=== PATIENT | female | born 1990 | race African-American/Black ===

== ENCOUNTER 2019-04-06 10:50 | Emergency (ER) | payer OTHER, SELFPAY ==
[2019-04-06 10:58] VITALS: BP 119/79; PULSE 92; RESP 20; TEMP 36.7; O2SAT 99
--- NOTE | 2019-04-06 11:13 | ED.URI ---
HPI - URI/Sore Throat General Chief Complaint: Upper Respiratory Infection Stated Complaint: cough/chest pain/rib pain/fan Source: patient Mode of arrival: ambulatory Limitations: no limitations History of Present Illness HPI Narrative: Patient is a 20-year-old female who presents complaining of cough, sore throat, congestion and mild body aches x3 days. Patient reports that she has not had influenza vaccination. Patient reports taking over the counter medications with limited relief. Patient unknown if she has fever. She denies nausea, vomiting or diarrhea. MD elicited complaint: cough, sore throat, rhinorrhea and nasal congestion Related Data Home Medications Medication Instructions Recorded Confirmed [id number] ea PO 04/06/19 [Theraflu Night Severe Cold-Cgh] ibuprofen-phenylephrine [Sudafed 1 tablet PO Q4-6H PRN 04/06/19 04/06/19 PE Head Congestn-Pain] Allergies Allergy/AdvReac Type Severity Reaction Status Date / Time Penicillins Allergy Unknown HIVES Verified 04/06/19 11:05 Review of Systems Review of Systems: Narrative: CONSTITUTIONAL: Denies fever, chills, or sweats. EYES: Denies visual changes, redness, or discharge. ENT: Reports rhinorrhea, congestion, sore throat, denies otalgia. CARDIOVASCULAR: Denies chest pain, palpitations, or edema. RESPIRATORY: Reports cough, denies dyspnea. GASTROINTESTINAL: Denies abdominal pain, nausea, vomiting, or diarrhea. GENITOURINARY: Denies dysuria or hematuria. SKIN: Denies rash or itching. MUSCULOSKELETAL: Denies back pain, joint pain, or myalgia. NEUROLOGIC: Denies headache, numbness, dizziness, or weakness. PSYCHIATRIC: Denies anxiety or depression. [facility] Past Medical History Medical History (Updated 04/06/19 @ 11:20 by SERGIO De Leon) No significant past medical history Surgical History Surgical History (Updated 04/06/19 @ 11:16 by SERGIO De Leon) No pertinent past surgical history Social History Social History (Updated 04/06/19 @ 11:16 by SERGIO De Leon) Smoking status: Never smoker Alcohol intake: current Alcohol use details: socially Substance use: never Occupation/Education: occupation Gender identity (if verbalized by the patient): Female Exam Narrative: Exam Narrative: GENERAL: Well-appearing, well-nourished, and in no acute distress. HEAD: Normocephalic, atraumatic. EYES: EOMI. No redness or drainage. Conjunctiva are normal. ENT: Mucous membranes pink and moist. Nares clear. Positive clear rhinorrhea. TMs normal bilaterally. Throat mild erythema and edema. Uvula midline. NECK: AROM. Supple. No lymphadenopathy. CHEST: No respiratory distress. Clear to auscultation. HEART: Regular rate and rhythm. No murmur appreciated. Normal peripheral pulses. EXTREMITIES: Normal range of motion. No edema. SKIN: Warm, dry, no rash. NEURO: No focal deficits. Alert and oriented x3. Gait steady. PSYCH: Normal affect. No signs of depression or anxiety. Course Vital Signs Vital signs: Vital Signs Temperature 36.7 C 04/06/19 10:58 Pulse Rate 92 04/06/19 10:58 Respiratory Rate 20 04/06/19 10:58 Blood Pressure 119/79 04/06/19 10:58 Pulse Oximetry 99 04/06/19 10:58 Temperature 36.7 C 04/06/19 10:58 Pulse Rate 92 04/06/19 10:58 Respiratory Rate 20 04/06/19 10:58 Blood Pressure 119/79 04/06/19 10:58 Pulse Oximetry 99 04/06/19 10:58 Reviewed MDM - URI/Sore Throat MDM Narrative Medical decision making narrative: Patient has positive influenza B. Discussed plan of care with patient. Patient is out of the window for Tamiflu. She will be treated with Tessalon for cough and instructed on patient also instructed on when to return the work. Patient is stable for discharge to home with outpatient follow-up as needed. Differential Diagnosis Differential diagnosis: Likely influenza Lab Data Labs: Influenza A Screen Negative Reference Range: N
== END 2019-04-06 11:28 | disposition home or self-care (01) ==
PROVIDERS: Emergency Provider Nurse Practitioner
DX: J10.1 Influenza due to other identified influenza virus with other respiratory manifestations (principal)
CPT/HCPCS: 87804; 99213; G0463

== ENCOUNTER 2019-04-07 04:35 | Emergency (ER) | payer OTHER, SELFPAY ==
[2019-04-07 04:39] VITALS: BP 125/109; PULSE 76; RESP 16; TEMP 36.7; O2SAT 100
--- NOTE | 2019-04-07 04:53 | ED.URI ---
HPI - URI/Sore Throat General Chief Complaint: Upper Respiratory Infection Stated Complaint: SOB Time Seen by Provider: 04/07/19 04:51 History of Present Illness HPI Narrative: Diagnosed with influenza yesterday. Awoke this morning wheezing and feeling short of breath. Additionally she has a cough, congestion, myalgias, and fatigue. No nausea, vomiting, syncope. Related Data Home Medications Medication Instructions Recorded Confirmed [id number] ea PO 04/06/19 [Theraflu Night Severe Cold-Cgh] ibuprofen-phenylephrine [Sudafed 1 tablet PO Q4-6H PRN 04/06/19 04/06/19 PE Head Congestn-Pain] Allergies Allergy/AdvReac Type Severity Reaction Status Date / Time Penicillins Allergy Unknown HIVES Verified 04/06/19 11:05 Review of Systems Review of Systems: All systems reviewed & are unremarkable except as noted in HPI and below Constitutional: Constitutional: Reports chills, Reports fatigue, Reports fever(s) and Reports weakness Eyes: Eyes: Denies change in vision ENT: Reports sore throat Cardiovascular: Cardiovascular: Reports chest pain Respiratory: Respiratory: Reports cough, Reports dyspnea and Reports wheezing Gastrointestinal: Gastrointestinal: Denies nausea Musculoskeletal: Musculoskeletal: Reports myalgias Neurologic: Denies dizziness and Denies weakness PMFSH Past Medical History Medical History No significant past medical history Surgical History Surgical History No pertinent past surgical history Social History Social History (Updated 04/06/19 @ 11:16 by SERGIO De Leon) Smoking status: Never smoker Alcohol intake: current Substance use: never Gender identity (if verbalized by the patient): Female Exam Const: General: no acute distress, alert and ill appearing acutely Nutritional Appearance: obese Orientation/consciousness: patient oriented x3 HENMT: Mouth: Yes Abnormal oral and palatal mucosa present edematous Eyes: Pupils: Equal, round and reactive pupils present Neck: Neck: no lymphadenopathy Resp: Effort & Inspection: normal respiratory effort Auscultation: wheezes (minimal) Cardio: Rate: regular rate Rhythm: regular rhythm GI: GI Palp: Yes Soft to palpation and No Tenderness to palpation present (GI) Skin: General skin exam: normal color Rashes: no rashes Neuro: General: patient oriented x3 and moves all extremities Speech: normal speech Extrem: General: normal to inspection Course Vital Signs Vital signs: Vital Signs Temperature 36.7 C 04/07/19 04:39 Pulse Rate 76 04/07/19 04:39 Respiratory Rate 16 04/07/19 04:39 Blood Pressure 125/109 H 04/07/19 04:39 Pulse Oximetry 100 04/07/19 04:39 Temperature 36.7 C 04/07/19 04:39 Pulse Rate 73 04/07/19 05:50 Respiratory Rate 18 04/07/19 05:50 Blood Pressure 125/109 H 04/07/19 04:39 Pulse Oximetry 97 04/07/19 05:14 Discharge Plan Discharge Clinical Impression: Influenza Patient Disposition: Home, Self-Care Condition: Stable Instructions: Influenza (ED) Prescriptions: New albuterol sulfate 90 mcg/actuation aerosol powdr breath activated 2 inhalation INHALATION Q4H PRN (Reason: shortness of breath or wheezing) Qty: 1 RF: 0 No Action Theraflu Night Severe Cold-Cgh 25-10-650 mg Powder In Packet PO RF: 0 Sudafed PE Head Congestn-Pain 200-10 mg Tablet 1 tablet PO Q4-6H PRN (Reason: Congestion) RF: 0 benzonatate 100 mg capsule 100 mg PO TID PRN (Reason: cough) Qty: 14 RF: 0 ibuprofen 800 mg tablet 800 mg PO Q6H PRN (Reason: pain) Qty: 20 RF: 0 Follow-up/Referrals: UNKNOWN,DOCTOR [Primary Care Provider] -
[2019-04-07 05:14] VITALS: O2SAT 97
[2019-04-07] MEDS: ALBUTEROL SULFATE NEB 2.5 MG/0.5 ML INH 5 MG INHALATION (05:45)
[2019-04-07 05:50] VITALS: PULSE 73; RESP 18
[2019-04-07 05:57] VITALS: PULSE 78; RESP 18
[2019-04-07 06:29] VITALS: BP 134/94; PULSE 72; RESP 14; TEMP 36.9; O2SAT 98
== END 2019-04-07 06:31 | disposition home or self-care (01) ==
PROVIDERS: Emergency Provider Emergency Medicine
DX: J10.1 Influenza due to other identified influenza virus with other respiratory manifestations (principal)
CPT/HCPCS: 94640; 99283

== ENCOUNTER 2019-05-15 17:05 | Emergency (ER) | payer OTHER, SELFPAY ==
[2019-05-15 17:15] VITALS: BP 120/72; PULSE 80; RESP 16; TEMP 36.6; O2SAT 100
--- NOTE | 2019-05-15 17:31 | ED.URI ---
HPI - URI/Sore Throat General Chief Complaint: Upper Respiratory Infection Stated Complaint: OTHER History of Present Illness HPI Narrative: This is a 28-year-old comes in complaining of having the flu approximately 5 to 6 weeks ago patient states she was seen in the emergency room not long after then she was given an inhaler with some steroids. Patient comes in today because she is continued to cough since then patient denies any fever nausea vomiting states her symptoms started to reside states that the cough comes and goes Related Data Allergies Allergy/AdvReac Type Severity Reaction Status Date / Time Penicillins Allergy Unknown HIVES Verified 04/06/19 11:05 Review of Systems Review of Systems: Narrative: CONSTITUTIONAL: Denies fever, chills, or sweats. EYES: Denies visual changes, redness, or discharge. ENT: Denies rhinorrhea, congestion, sore throat, or otalgia. CARDIOVASCULAR:Denies chest pain, palpitations, or edema. RESPIRATORY: Reports cough or dyspnea. GASTROINTESTINAL: Denies abdominal pain, nausea, vomiting, or diarrhea. GENITOURINARY: Denies dysuria or hematuria. SKIN:[Denies rash or itching. MUSCULOSKELETAL:Denies back pain, joint pain, or myalgia. NEUROLOGIC: Denies headache, numbness, or weakness. PSYCHIATRIC:Denies anxiety or depression PMF Social History Social History (Updated 04/06/19 @ 11:16 by SERGIO De Leon) Smoking status: Never smoker Alcohol intake: current Substance use: never Gender identity (if verbalized by the patient): Female Comments At time as signature, I have reviewed and agree with nursing past medical, social, surgical and family history. Please see nursing chart for further information. There is no relevant family history pertinent to the presenting complaint. Exam Narrative: Exam Narrative: GENERAL:Well-appearing, well-nourished, and in no acute distress. HEAD:Normocephalic, atraumatic. EYES: PERRLA and EOMI. ENT: Nares clear, no rhinorrhea or epistaxis. Mucous membranes moist. TM bulging postnasal drip NECK: Supple. CHEST: Clear to auscultation. No respiratory distress. HEART: Regular rate and rhythm. No murmur heard. Normal peripheral pulses. ABDOMEN: Soft, nontender, nondistended, normal active bowel sounds. EXTREMITIES: Normal range of motion. No edema. SKIN: Warm, dry, no rash. NEURO: No focal deficits. Alert and oriented x3. Course Vital Signs Vital signs: Vital Signs Temperature 97.9 F 05/15/19 17:15 Pulse Rate 80 05/15/19 17:15 Respiratory Rate 16 05/15/19 17:15 Blood Pressure 120/72 05/15/19 17:15 Pulse Oximetry 100 05/15/19 17:15 Temperature 97.9 F 05/15/19 17:15 Pulse Rate 80 05/15/19 17:15 Respiratory Rate 16 05/15/19 17:15 Blood Pressure 120/72 05/15/19 17:15 Pulse Oximetry 100 05/15/19 17:15 Discharge Plan Discharge Clinical Impression: Bronchitis Upper respiratory infection Qualifiers: URI type: unspecified viral URI Qualified Code(s): J06.9 - Acute upper respiratory infection, unspecified Patient Disposition: Home, Self-Care Condition: Stable Instructions: Antibiotic Form, Upper Respiratory Infection (ED), Acute Bronchitis (ED) Additional Instructions: Viral illness may last between 7-12days; antibiotic is NOT recommended at this time. Recommend antihistamine such as Benadryl at night time and Claritin/Zyrtec/Nina during the day Also, recommend symptomatic treatment includes: rest, fluids, and increase humidity of the air at home. Recommend Acetaminophen or nonsteroidal anti-inflammatory agents (NSAIDs) as directed in the bottle to reduce fever and/pain/headache. Avoid smoking/second-hand smoke. Limit visits to areas with large crowds. Please schedule a follow-up visit with your personal physician for further evaluation and treatment within 3-5days. Including recheck and discussion of your blood pressure. If your symptoms persist, change or worsen significantly before you can
== END 2019-05-15 17:47 | disposition home or self-care (01) ==
PROVIDERS: Emergency Provider Nurse Practitioner Family
DX: J06.9 Acute upper respiratory infection, unspecified (principal)
CPT/HCPCS: 99213; G0463

== ENCOUNTER 2019-11-03 10:47 | Outpatient (CLI) | payer OTHER, SELFPAY ==
--- NOTE | ~2019-11-03 | MR_ITS ---
EXAMINATION: MR pelvis wo/w con INDICATION: Leiomyoma the uterus TECHNIQUE: Coronal SSFSE ARC, Coronal, Axial, and Sagittal T2 FRFSE, Coronal 2D FIESTA FatSat, Axial SSFSE BH ARC, Axial 3D DualEcho BH, Axial STIR, Axial DWI b=500, pre and dynamic postcontrast Axial L CHRISTINE ARC COMPARISON: None available CONTRAST: Multihance, 20 cc FINDINGS: The uterus is markedly enlarged by fibroids and measures approximately 19.9 x 11.6 x 28.3 c m. There are greater than 10 large uterine fibroids and multiple smaller fibroids. The largest measur es 9.6 x 6.3 cm in the uterine fundus. One measuring 3.5 x 2.4 cm in the right uterine body is hemorr hagic in appearance. The fibroids displace to the left and distort the endometrial complex. The trae l appearing left ovary is displaced into the left abdomen. The visualized portions of the kidneys, ad renal glands, pancreas, spleen, liver, and gallbladder are unremarkable. IMPRESSION: 1. Marked enlargement of the uterus by greater than 10 large fibroids and multiple smaller fibroids w ith displacement and distortion of the endometrial complex. Reviewed, dictated and finalized at location A. IMPRESSION: 1. Marked enlargement of the uterus by greater than 10 large fibroids and multi ple smaller fibroids with displacement and distortion of the endometrial comple x.
[2019-11-03 11:15] LABS: Estimated Glomerular Filt Rate > 60
== END 2019-11-03 10:48 | disposition home or self-care (01) ==
PROVIDERS: PCP Obstetrics & Gynecology; Visit Provider Obstetrics & Gynecology
DX: D25.9 Leiomyoma of uterus, unspecified (principal)
CPT/HCPCS: 72197; A9577

== ENCOUNTER 2020-01-06 09:17 | Emergency (ER) | payer OTHER, SELFPAY ==
[2020-01-06 09:24] VITALS: BP 130/93; PULSE 93; RESP 16; TEMP 36.9; O2SAT 100
--- NOTE | 2020-01-06 09:27 | ED.URI ---
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 Patient notes a shorter 1 to 2-day history of scratchy sore throat followed by frontal sinus headache and nasal congestion. No fever measured, cough, earache, loss of taste/smell, CP, sneezing/wheezing, travel history, vomiting/diarrhea, S OB, rash. Symptoms are mild, worse upon waking this morning, unimproved with a dose of OTC preparations like Claritin. Related Data Allergies Allergy/AdvReac Type Severity Reaction Status Date / Time Penicillins Allergy Unknown HIVES Verified 01/06/20 09:28 Review of Systems Review of Systems: Narrative: General/Constitutional: No weight loss,fever Eyes: N0: Redness,discharge Ears/Nose/Throat: No: Epistaxis,ear discharge Respiratory: Denies: Hemoptysis Gastrointestinal: No Vomiting, Bleeding-rectal Skin: No Lumps, eruption Neurologic: No Focal Weakness,Sz Hematologic: Denies: Petechiae/Purpura Psychiatric: No: Suicida ideationl All Other Systems: Reviewed and Negative [facility] Past Medical History Medical History (Updated 01/06/20 @ 09:28 by Juno Milner MD) Acid reflux Jumper's knee No significant past medical history Surgical History Surgical History No pertinent past surgical history Family History Family History Other Breast cancer Other Diabetes mellitus Grandparent Hypertension Mother Asthma Father Asthma Social History Social History Smoking status: Never smoker Alcohol intake: current Substance use: never Gender identity (if verbalized by the patient): Female Comments At time of signature, agree with nursing past medical, surgical, social and family history. There is no relevant family history pertinent to the presenting complaint Exam Narrative: Exam Narrative: General Appearance: Well appearing, Conjunctiva clear Ears: Auditory canal normal, TM normal Nose: Rhinorrhea, Mucousal erythema Mouth/Throat: MM moist, Uvula midline, Pharyngeal erythema Supple Respiratory: No respiratory distress, not tachypneic, patent Musculoskeletal: Non tender, Normal strength Skin: Warm, Dry Neurological: A&O x3, Normal affect Course Vital Signs Vital signs: Vital Signs Temperature 98.5 F 01/06/20 09:24 Pulse Rate 93 01/06/20 09:24 Respiratory Rate 16 01/06/20 09:24 Blood Pressure 130/93 H 01/06/20 09:24 Pulse Oximetry 100 01/06/20 09:24 Temperature 98.5 F 01/06/20 09:24 Pulse Rate 93 01/06/20 09:24 Respiratory Rate 16 01/06/20 09:24 Blood Pressure 130/93 H 01/06/20 09:24 Pulse Oximetry 100 01/06/20 09:24 Discharge Plan Discharge Clinical Impression: Acute rhinosinusitis Patient Disposition: Home, Self-Care Condition: Stable Instructions: Antibiotic Form, Rhinosinusitis (ED) Prescriptions: New azithromycin 250 mg tablet See Rx Instructions .ROUTE .COMPLEX Qty: 6 RF: 0 azelastine 137 mcg (0.1 %) aerosol,spray 137 mcg NASAL Q12H Qty: 30 RF: 0 Other Ambulatory Orders: SARS-CoV-2 RNA, Qual RT-PCR (Routine) Location: Determined by Patient Ordered By: Juno Milner Follow-up/Referrals: Reanna,Nuno Tamayo MD [Primary Care Provider] - Stand Alone Forms: Work/School Release IP
== END 2020-01-06 09:49 | disposition home or self-care (01) ==
PROVIDERS: Emergency Provider Emergency Medicine; PCP Family Medicine Sports Medicine
DX: J00 Acute nasopharyngitis [common cold] (principal); J01.90 Acute sinusitis, unspecified; Z20.828 Contact with and (suspected) exposure to other viral communicable diseases; K21.9 Gastro-esophageal reflux disease without esophagitis
CPT/HCPCS: 99213; G0463

== ENCOUNTER 2020-06-15 17:24 | Emergency (ER) | payer OTHER, SELFPAY ==
[2020-06-15 17:30] VITALS: BP 127/87; PULSE 81; RESP 16; TEMP 36.7; O2SAT 100
--- NOTE | 2020-06-15 18:12 | ED.DIZZY ---
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 Patient states she has a shorter 1 day history of true vertigo with spinning sensation that began this afternoon and lasted for less than a half a minute. Symptoms are mild, self-limited, cause her to lean towards her coworker while she was standing & heating foods in break area. No fever, URI?sinusitis, tinnitus, lateralizing weakness, speech/visual changes. She mentions a mild associated frontal/parietal headache that preceded this for couple days that did not worsen and is now absent. She has been double vaccinated this year, no CP, loss of taste/smell, S OB. No concerns [LMP was this last weekend], she has history fibroids. She reports she had a recent March stable laboratory work-up for epigastric discomfort felt to be from GERD [and is pending CT scan abdomen the next week]. Advised to go to higher-level care facility to higher level testing if not improved tomorrow, because for early diagnosis of serious problems [endocrine (diabetes, thyroid), anemia, neuro, metabolic causes, etc.], clear specific symptoms may be similar or do not develop later Related Data Home Medications Medication Instructions Recorded Confirmed pantoprazole PO 06/15/20 Allergies Allergy/AdvReac Type Severity Reaction Status Date / Time Penicillins Allergy Unknown HIVES Verified 01/06/20 09:28 Review of Systems Review of Systems: Narrative: General/Constitutional: No weight loss,fever Eyes: N0: Redness,discharge Ears/Nose/Throat: No: Epistaxis,ear discharge Respiratory: Denies: Hemoptysis Gastrointestinal: No Vomiting, Bleeding-rectal Skin: No Lumps, eruption Neurologic: No Focal Weakness,Sz Hematologic: Denies: Petechiae/Purpura Psychiatric: No: Suicida ideationl All Other Systems: Reviewed and Negative [facility] Past Medical History Medical History (Updated 06/16/20 @ 00:01 by Garrett Jackson) Acid reflux Jumper's knee No significant past medical history Surgical History Surgical History No pertinent past surgical history Family History Family History Other Breast cancer Other Diabetes mellitus Grandparent Hypertension Mother Asthma Father Asthma Social History Social History Smoking status: Never smoker Alcohol intake: current Substance use: never Gender identity (if verbalized by the patient): Female Comments At time of signature, agree with nursing past medical, surgical, social and family history. There is no relevant family history pertinent to the presenting complaint Exam Narrative: Exam Narrative: General Appearance: Well nourished/obese, No distress EYE: PERRLA, Conjunctiva clear, EOMI, no nystagmus with position changes Neurological: A&O x3, CN II-X intact Ears: External ear normal, TMs benign Nose: Normal nose Mouth/Throat: Normal appearing, Normal lips Neck: Supple Respiratory: Airway patent, No respiratory distress Cardiovascular: RRR Abdomen: Soft, Non-tender, No massess, No organomegaly (no rebound/ surgical signs), Hyperactive bowel sounds Musculoskeletal: Full ROM and strength with symmetric reflexes 1+ Bi/Tri, AJ/KJ Skin: Warm, Dry Psychiatric: Normal mood, Normal affect Course Vital Signs Vital signs: Vital Signs Temperature 98.1 F 06/15/20 17:30 Pulse Rate 81 06/15/20 17:30 Respiratory Rate 16 06/15/20 17:30 Blood Pressure 127/87 06/15/20 17:30 Pulse Oximetry 100 06/15/20 17:30 Temperature 98.1 F 06/15/20 17:30 Pulse Rate 81 06/15/20 17:30 Respi
== END 2020-06-15 18:24 | disposition home or self-care (01) ==
PROVIDERS: Emergency Provider Emergency Medicine; PCP Family Medicine Sports Medicine
DX: R42 Dizziness and giddiness (principal); K21.9 Gastro-esophageal reflux disease without esophagitis; Z20.822 Contact with and (suspected) exposure to COVID-19
CPT/HCPCS: 87426; 99213; C9803; G0463

== ENCOUNTER 2021-03-31 14:27 | Outpatient (CLI) | payer OTHER, SELFPAY ==
[2021-03-31 16:20] LABS: Hematocrit 44.9 % (37.0-47.0); Hemoglobin 14.2 g/dL (12.0-15.0); Mean Corpuscular HGB Conc 31.6 g/dl (32-36); Mean Corpuscular Hemoglobin 26.3 pg (26-34); Mean Corpuscular Volume 83.1 fl (80-100); Mean Platelet Volume 10.2 fl (7.4-10.4); Platelet Count Result 253 k/mm3 (150-375); Red Cell Distribution Width 15.3 % (11.5-14.5); White Blood Count 4.6 K/mm3 (4.5-10.0)
== END 2021-03-31 14:28 | disposition home or self-care (01) ==
PROVIDERS: PCP Family Medicine Sports Medicine; Visit Provider Obstetrics & Gynecology
DX: Z01.818 Encounter for other preprocedural examination (principal); D25.9 Leiomyoma of uterus, unspecified
CPT/HCPCS: 36415; 85027; 86850; 86900; 86901

== ENCOUNTER 2021-04-05 20:11 | Inpatient (IN) | payer OTHER, SELFPAY ==
[2021-03-30 12:46] VITALS: BMI 41.5
--- NOTE | 2021-03-30 12:54 | PC.NURSE ---
Report to the Outpatient Waiting Room, entrance under the green pavilion located off [facility], at time 11:30 on date 04/05/21. OR Time: 1:30. - You will be asked a series of questions to screen for COVID 19 for your protection. - A mask is required within the hospital. - No visitors are allowed at this time. Preoperative COVID Testing Requirements: TO BRING COPY OF CARD No COVID Test needed if: (proof is required; if not received patient will have Rapid Test prior to entry) - Patient has received COVID Vaccine at least 14 days prior to procedure date or - Patient has positive COVID test result within last 90 days of surgery date. COVID Test needed if above criteria is not met Patients may have clear liquids (water, carbonated beverages, clear teas, apple juice) until 3 hours prior to surgery (10:30) with a maximum of 20 ounces. - No food from midnight until time of surgery Take the following medications with a SIP of water the morning of surgery: NONE Medications to discontinue per physician: VITAMINS/SUPPLEMENTS Date to take last dose: 04/01/21 Please no make-up, nail senegalese, hairspray, perfume, deodorant, or body powder the day of surgery. No jewelry (including any body piercings) or valuables the day of surgery, leave them at home. Please take a shower or bath the night before, or the morning of, surgery with an antibacterial soap. Wear comfortable, loose fitting clothing. - Jewelry must be removed prior to entering the operating room. Rings and piercings that are not removed may be cut off. - The hospital will not accept responsibility for valuables. - Please leave all valuables, including medications, at home the day of surgery. If you are going home after surgery, a licensed commercial truck driver must drive you home. - NO public transportation without another adult. - We recommend that an adult stay with you for 24 hours following discharge. - We also recommend that you do not drive, make important decision, drink alcoholic beverages, or take any drugs that were not prescribed by your health care provider for at least 24 hours after your discharge time. Follow any additional instructions given to you from your surgeon. Telephone instructions given to STAN ANDREWS and asked if any additional questions and then verbalized understanding. Patient advised to call surgeon office or pre surgery nurse liaison [phone] if any additional questions.
--- NOTE | 2021-04-04 22:43 | PM.IMHP ---
H&P: HPI History of Present Illness Date/Time: 04/04/21 22:43 Patient is a nulliparous female with a known history of fibroids. She had a history several years ago of heavy periods which did improve with control pills which she did due to side effects. Since then periods have not caused her any problems, not significantly heavy. She started noticing increased diffuse abdominal pressure a year ago. Her uterus measured approximately 34 weeks. She had CTs which showed enlarged fibroid uterus, multiple fibroids with largest measuring approximately 12 cm. She has been informed of options of myomectomy and discussed uterine fibroid embolization and risk to future . She was referred to [facility] for there opinion which they offered myomectomy. She opted to get myomectomy here. She had normal endometrial biopsy. She did have three months of Lupron which did decreased the size of the uterus from 34 0 22 weeks. She has been informed of risk/benefits of myomectomy, to include risk of hysterectomy and possible need for ceserean section with future pregnancies. She continues to desire abdominal myomectomy. Chief Complaint: Abdominal pressure Review of Systems Review of Systems: All systems reviewed & are unremarkable except as noted in HPI and below Cardiovascular: Cardiovascular: Reports no additional cardiovascular complaints, Denies chest pain and Denies dyspnea Respiratory: Respiratory: Reports no additional respiratory complaints and Denies dyspnea Gastrointestinal: Gastrointestinal: Reports abdominal pain, Denies change in bowel habits, Denies diarrhea, Denies nausea and Denies vomiting Genitourinary: Genitourinary: Reports pelvic pain Musculoskeletal: Musculoskeletal: Reports back pain Integumentary/Breasts: Skin/Breast: Reports system reviewed and no additional complaints, except as docu Neurologic: Reports system reviewed and no additional complaints, except as documented [facility] Past Medical History Medical History Acid reflux History of uterine fibroid Jumper's knee Surgical History Surgical History No pertinent past surgical history Family History Family History Other Breast cancer Other Diabetes mellitus Grandparent Hypertension Mother Asthma Father Asthma Social History Social History Smoking status: Former smoker Tobacco type: e-cigarettes/vaping Additional smoking assessment comments: QUIT VAPING FEB 2021 Alcohol intake: current Drinks per week: 5 Alcohol use details: socially Substance use: current Substance use type: marijuana Other substance usage details: GUMMIES Gender identity (if verbalized by the patient): Female Spiritual care concerns: No Meds Home Medications and Allergies Home Medications Medication Instructions Recorded Confirmed Type pantoprazole 40 mg PO DAILY PRN 06/15/20 03/30/21 History elderberry fruit 460 mg-elderberry 1 cap PO DAILY 07/01/20 03/30/21 History flower 115 mg capsule multivitamin 1 tablet PO DAILY 07/01/20 03/30/21 History leuprolide (3 month) 11.25 mg (3 11.25 mg IM [id number] #1 ea 12/16/20 03/30/21 Rx month) intramuscular syringe kit ferrous sulfate [Iron (ferrous 325 mg PO DAILY 03/30/21 03/30/21 History sulfate)] vitamin W26-mrats acid 1 tablet PO DAILY 03/30/21 03/30/21 History Allergies Allergy/AdvReac Type Severity Reaction Status Date / Time Penicillins Allergy Unknown HIVES Verified 03/30/21 12:44 Exam Const: Orientation/consciousness: oriented to person and oriented to place HENMT: Head: normal to inspection Eyes: General: appearance normal, both eyes and all related structures Resp: Effort & Inspection: normal respiratory effort Auscultation: clear to ausculta
[2021-04-05] VITALS (23 sets, daily range): BP systolic 78–128; BP diastolic 46–84; PULSE 81–113; RESP 12–18; TEMP 36.3–36.4; O2SAT 71–100; BMI 42.4
--- NOTE | ~2021-04-05 | CT_ITS ---
EXAMINATION: CT abdomen pelvis wo con DATE: 04/08/2021 09:16 INDICATION: Postop day 3. Hemoglobin. TECHNIQUE: Computed tomography (CT) of the abdomen and pelvis was performed without intravenous contr ast. The dose-length product was 1445.18 mGy-cm. Automated exposure control and iterative reconstruct ion technique were employed. COMPARISON: None. FINDINGS: There is lower lobe airspace disease bilaterally which may represent atelectasis or develop ing pneumonia. Heart size normal. No significant pleural or pericardial effusion. NG tube in the stom ach. There are dilated fluid-filled small bowel loops throughout the abdomen, likely postoperative il eus. There is postoperative changes in the anterior abdominal wall with fat stranding and subcutaneou s gas. Uterus is significantly enlarged and heterogeneous. Endometrium is not well delineated. Small amount of fluid in the pelvis, nonspecific. Small amount of free air in the pelvis, also likely posts urgical. No acute osseous abnormality. The liver, spleen, pancreas, adrenal glands and kidneys are unremarkable. No acute osseous abnormalit y. IMPRESSION: 1. Bilateral lower lobe airspace disease which may represent atelectasis and/or developing pneumonia. 2: Multiple dilated fluid-filled small bowel loops with air-fluid levels, consistent with ileus. 3: Large heterogeneous uterus. Endometrium not well delineated. Postoperative changes are noted in th e lower abdomen and pelvis. Reviewed, dictated and finalized at location A. RONMENTAL SERVICES COORDINATOR IMPRESSION: 1. Bilateral lower lobe airspace disease which may represent atelectasis and/or developing pneumonia. 2: Multiple dilated fluid-filled small bowel loops with air-fluid levels, cons istent with ileus. 3: Large heterogeneous uterus. Endometrium not well delineated. Postoperative c hanges are noted in the lower abdomen and pelvis.
--- NOTE | ~2021-04-05 | XR_ITS ---
XR abdomen NG/feed tube insert INDICATION: Evaluate NG tube position. TECHNIQUE: Limited KUB perform for evaluating NG tube . COMPARISON: 04/07/2021 FINDINGS: NG tube tip in the stomach. There are dilated small bowel loops in the left upper abdomen c onsistent with ileus or obstruction. IMPRESSION: 1: NG tube tip in the stomach. 2: Dilated small bowel, consistent with ileus or obstruction. Reviewed, dictated and finalized at location A. ESSOR OF LEGAL STUDIES
--- NOTE | ~2021-04-05 | XR_ITS ---
XR chest 2V 04/08/2021 09:05 Indication: Fever. Postop. Procedure: 2 view chest Comparison: No prior studies for comparison. Findings: There is right lower lobe atelectasis. Heart size normal. NG tube in the stomach. No focal pneumonia, pleural effusion, edema or pneumothorax. Impression: 1: Right lower lobe atelectasis. Reviewed, dictated and finalized at location A. PAPER PRINTER HELPER Impression: 1: Right lower lobe atelectasis.
--- NOTE | ~2021-04-05 | XR_ITS ---
EXAMINATION: XR abdomen/kub 1V EXAM DATE: 04/07/2021 15:44 INDICATION: Rule out ileus, no flatus since surgery 04/05/21. TECHNIQUE: Frontal projection(s) of the abdomen for interpretation. There is no prior study for yo machado. FINDINGS: Severely distended air-filled small bowel loops and relative paucity of colonic contents. Could be postoperative ileus given the history provided. There is no organomegaly. There are no osseo us abnormalities identified. IMPRESSION: Severely distended small bowel, consider postoperative ileus given history provided. Reviewed, dictated and finalized at location G. UP ARTIST
--- NOTE | 2021-04-05 12:26 | WPDHPUPDATE1 ---
History and Physical Update Update Date/Time: 04/05/21 12:26 History and Physical has been reviewed, including an updated exam of the patient. There are NO changes in the patient's condition. Risks, benefits, and alternatives have been discussed and questions answered. Patient agrees to proceed with procedure.
[2021-04-05] MEDS: KETOROLAC 15 MG/ML VIAL (*BKC) IV PUSH (12:30)
[2021-04-05] MEDS: SCOPOLAMINE 1.5 MG PATCH TRANSDERM (12:30)
[2021-04-05] MEDS: LACTATED RINGERS 1,000 ML 30 ML IV CONT ×4 (12:30→20:12)
--- NOTE | 2021-04-05 12:33 | P.PNAN_ITS ---
Anes - Initial Pre Proc Eval Procedure: Operation Date: 04/05/21 13:30 Proposed Procedures p Abdominal Myomectomy - Pipe Jacome MD Date/Time: 04/05/21 12:33 Surgeon: Pipe Jacome MD Pre Op Diagnosis: uterine fibroids Patient Data Age: 30 Gender: F Height: 1.63 m Weight: 109.77 kg Allergies Allergy/AdvReac Type Severity Reaction Status Date / Time Penicillins Allergy Unknown HIVES Verified 03/30/21 12:44 Home Medications Medication Instructions Recorded Confirmed Type pantoprazole 40 mg PO DAILY PRN 06/15/20 03/30/21 History elderberry fruit 460 mg-elderberry 1 cap PO DAILY 07/01/20 03/30/21 History flower 115 mg capsule multivitamin 1 tablet PO DAILY 07/01/20 03/30/21 History leuprolide (3 month) 11.25 mg (3 11.25 mg IM [id number] #1 ea 12/16/20 03/30/21 Rx month) intramuscular syringe kit ferrous sulfate [Iron (ferrous 325 mg PO DAILY 03/30/21 03/30/21 History sulfate)] vitamin Z36-hedxf acid 1 tablet PO DAILY 03/30/21 03/30/21 History Patient hx anesthesia problems: none Family hx anesthesia problems: none Results Review: All pre-operative results and documents have been reviewed as part of the pre-operative evaluation. [facility] Past Medical History Medical History (Updated 04/05/21 @ 12:33 by Raymond Mckay MD) Acid reflux History of uterine fibroid Jumper's knee Morbid obesity Surgical History Surgical History No pertinent past surgical history Family History Family History Other Breast cancer Other Diabetes mellitus Grandparent Hypertension Mother Asthma Father Asthma Social History Social History Smoking status: Former smoker Tobacco type: e-cigarettes/vaping Additional smoking assessment comments: QUIT VAPING FEB 2021 Alcohol intake: current Drinks per week: 5 Alcohol use details: socially Substance use: current Substance use type: marijuana Other substance usage details: TRIXIEMIBUSTER Living arrangements: alone Gender identity (if verbalized by the patient): Female Spiritual care concerns: No Anes - Eval Final PreProcedure Day of Procedure 04/05/21 12:33 Patient weight: morbidly obese Heart: regular rate and rhythm Lungs: clear to auscultation Airway: Mallampati scale class II Neurological: alert and oriented Last oral intake: >/= 8 hours ASA classification: III Emergent: no Anesthetic plan: proceed Anesthesia type and monitoring: general ETT and standard monitoring Results Review: All pre-operative results and documents have been reviewed as part of the pre-operative evaluation. Informed Consent: The patient's anesthetic plan and its attendant risks and benefits were discussed with the patient/family/POA. Questions were solicited and answers provided to the satisfaction of the patient/family/POA.
[2021-04-05] MEDS: ceFAZolin 2 GM/D5W 50 ML 2 GM/50 ML BAG IVPB (12:40)
[2021-04-05] MEDS: VASOPRESSIN INJ 20 UNITS/ML VIAL XX (13:15)
[2021-04-05] MEDS: TRANEXAMIC ACID 1,000 MG/10 ML AMPUL 1000 MG IV PUSH ×2 (14:06→19:09)
[2021-04-05] MEDS: METHYLERGONOVINE MALEATE 0.2 MG/ML VIAL IM (15:38)
[2021-04-05] MEDS: ceFAZolin SODIUM 1 GM VIAL IV PUSH (16:26)
--- NOTE | 2021-04-05 17:14 | SUR.OPER ---
EBL 1600
[2021-04-05] MEDS: fentaNYL CITRATE INJ (*CRX) 100 MCG/2 ML VIAL 25 MCG IV PUSH ×6 (17:48→19:38)
[2021-04-05 19:00] LABS: Hematocrit 22.5 % (37.0-47.0)
--- NOTE | 2021-04-05 19:23 | SUR.PHASEI ---
1920- Tranexamic acid 1000mg given slow ivp. 100mg every 10 minutes. Bloodwork drawn. family member updated.
--- NOTE | 2021-04-05 19:54 | SUR.PHASEI ---
1944- Dr Jacome made aware of H&H results. No new orders given at this time.
--- NOTE | 2021-04-05 20:31 | PM.OP ---
Procedure Note - Brief Procedure Note - Brief Date of procedure: 04/05/21 Pre-op diagnosis: uterine fibroids Post-op diagnosis: same Procedure performed: Abdominal myomectomy Anesthesia: GETA Surgeon: Pipe Jacome MD Estimated blood loss (mL): 1,700 Drains: No Packing: No Pathology: yes (multiple uterine fibroids ( 20)) Complications: No immediate complications Condition: stable Disposition: floor
[2021-04-05] MEDS: DEXTROSE 5%/0.45% SOD CHL 1,000 ML 125 ML IV CONT (20:57)
[2021-04-05] MEDS: ONDANSETRON INJ 4 MG/2 ML VIAL IV PUSH (20:58)
[2021-04-05] MEDS: FENTANYL 600MCG/NS30MLPCA(*CRX 600 MCG/30 ML PCA.VIAL IV CONT (22:04)
[2021-04-05 22:41] LABS: Basophils Percent Auto 0.1 % (0.2-1.2); Eosinophils Percent Auto 0.1 % (0-4.4); Immature Granulocyte Absolute 0.09 K/mm3 (0.00-0.031); Immature Granulocyte Percent A 0.7 % (0-0.5); Lymphocytes Absolute Auto 0.98 K/mm3 (0.9-3.2); Lymphocytes Percent Auto 7.3 % (18.3-44.2); Mean Corpuscular HGB Conc 31.6 g/dl (32-36); Mean Corpuscular Hemoglobin 27.5 pg (26-34); Mean Corpuscular Volume 87.2 fl (80-100); Mean Platelet Volume 10.9 fl (7.4-10.4); Monocytes Absolute Auto 1.3 K/mm3 (0.1-0.6); Monocytes Percent Auto 9.9 % (2.6-8.5); Neutrophils Percent Auto 81.9 % (45.5-73.1); Platelet Count Result 164 k/mm3 (150-375); Red Blood Count 2.18 M/mm3 (4.2-5.4); Red Cell Distribution Width 14.9 % (11.5-14.5); White Blood Count 13.4 K/mm3 (4.5-10.0)
[2021-04-05] MEDS: SODIUM CHLORIDE 0.9% IV 1,000 ML 125 ML (23:25)
[2021-04-06] VITALS (20 sets, daily range): BP systolic 80–109; BP diastolic 40–63; PULSE 101–123; RESP 12–24; TEMP 36.8–38.2; O2SAT 95–100
--- NOTE | 2021-04-06 00:46 | PC.NURSE ---
2030- Pt admitted to room 289. A&O x3. PL [address].
[2021-04-06] MEDS: SIMETHICONE 80 MG TAB.CHEW PO ×2 (02:40→15:06)
--- NOTE | 2021-04-06 03:37 | PC.NURSE ---
Anastasia becomes very anxious at times, with faster respirations and heart rate, better with guided breathing and encouragement to slow down, has been able to do this for herself last episode refuses to decrease O2 rate at this time, informed today we will be weaning her off of the O2
--- NOTE | 2021-04-06 07:00 | PC.NURSE ---
PT introductions made and plan of care discussed per post op ob/gyn surgery, pain management, daily care activities. PT received such instructions per one to one discussion and demonstration. pt shows no barriers to learning. PT sole recipient of such instructions. PT verbalized understanding of such care.
--- NOTE | 2021-04-06 07:43 | WPDANESPN ---
Anes - Prog Note Post-Op Date/Time: 04/06/21 07:43 Cardiovascular status: normal Respiratory status: normal Airway patency: baseline Mental status: baseline Post-Op hydration status: normal Vital Signs: Last Vital Signs Temp 37.7 C H 04/06/21 05:10 Pulse 123 H 04/06/21 05:10 Resp 22 H 04/06/21 05:10 BP 84/54 L 04/06/21 05:10 Pulse Ox 100 04/06/21 05:10 Pain Score (VAS): 0 I/O: Intake & Output 04/05/21 04/05/21 04/06/21 15:59 23:59 07:59 Intake Total 50 1750 1353 Output Total 105 250 Balance 50 1645 1103 Laboratory Tests 04/05/21 22:23 04/05/21 04/05/21 04/05/21 18:53 22:23 23:48 WBC 13.4 H RBC 2.18 L Hgb 7.0 L D 6.0 L* Hct 22.5 L 19.0 L* MCV 87.2 MCH 27.5 MCHC 31.6 L RDW 14.9 H Plt Count 164 MPV 10.9 H Immature Gran % (Auto) 0.7 H Neut % (Auto) 81.9 H Lymph % (Auto) 7.3 L [place] % (Auto) 9.9 H Eos % (Auto) 0.1 Baso % (Auto) 0.1 L Lymph # (Auto) 0.98 [place] # (Auto) 1.3 H Eos # (Auto) 0.0 Baso # (Auto) 0.0 Abs Immat Gran (auto) 0.09 H Absolute Neuts (auto) 11.0 H Absolute Nucleated RBC 0.0 Nucleated RBC % 0.0 Blood Type A Positive Antibody Screen Negative Crossmatch See Detail Post-procedural complaints: none Patient Feedback: Patient satisfied with anesthetic care.
--- NOTE | 2021-04-06 09:07 | PM.GYNPNOP ---
GENERAL PARTNER - A/P Assessment and plan (1) Status post myomectomy: Code(s): Z98.890 - Other specified postprocedural states Status: Acute Assessment and Plan: She is doing well. discussed her surgery with her. Urine output increasing this am, will give dose of Lasix since had increase IVF last night. Encourage ambulation today. Advance diet. Will start po pain medication (2) Postoperative anemia: Code(s): D64.9 - Anemia, unspecified Status: Acute Assessment and Plan: She is status post 2 units PRBCs. Her post transfusion CBC pending. She has minimal vaginal bleeding. No signs of active bleeding. Postoperative Procedures: Procedures Operation Date: 04/05/21 13:30 Actual Procedure Side Surgeon p Abdominal Myomectomy Not Applicable Pipe Jacome MD Time Spent With Patient Time: Total time spent is greater than 50% in coordination of care (as documented) at patient's floor/unit and/or counseling patient: Time with patient: less than 15 minutes GENERAL PARTNER- PN:Subj Post-Op Subjective Date/time seen: 04/06/21 09:07 She has some upper abdominal pain not relieved with Tylenol. 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 No lower abdominal pain. Minimal vaginal bleeding. She did OK sitting up in chair. Tolerating water and ice chips. No flatus. No leg pain. No chest pain. Denies SOB. Review of Systems Review of Systems: All systems reviewed & are unremarkable except as noted in HPI and below Cardiovascular: Cardiovascular: Reports no additional cardiovascular complaints Respiratory: Respiratory: Reports no additional respiratory complaints Gastrointestinal: Gastrointestinal: Reports belching, Denies nausea and Denies vomiting Genitourinary: Genitourinary: Reports no additional female genitourinary complaints Musculoskeletal: Musculoskeletal: Reports no additional musculoskeletal complaints Exam Const: General: comfortable and no acute distress Orientation/consciousness: oriented to person, oriented to place and oriented to time Resp: Auscultation: clear to auscultation bilaterally Cardio: Rate: regular rate Rhythm: regular rhythm GI: GI Palp: Yes Soft to palpation and No Tenderness to palpation present (GI) Other: bowel sounds present, dressing clean dry and intact uterus palp 14 weeks nontender Neuro: General: oriented to person, oriented to place and oriented to time Extrem: General: no calf tenderness Psych: Mental Status: mental status grossly normal GENERAL PARTNER - PN: Obj Data Vital Signs Vital Signs: Vital Signs - 24 hr 04/05/21 12:23 04/05/21 17:29 04/05/21 17:45 Temperature 97.5 F L 97.4 F L Pulse Rate 88 92 82 Respiratory Rate 16 14 14 Blood Pressure 128/84 95/61 L 99/61 L Pulse Oximetry 100 100 100 04/05/21 18:00 04/05/21 18:15 04/05/21 18:30 Temperature Pulse Rate 85 81 100 Respiratory Rate 14 16 12 Blood Pressure 105/57 L 99/58 L 95/57 L Pulse Oximetry 100 100 100 04/05/21 18:45 04/05/21 19:00 04/05/21 19:15 Temperature Pulse Rate 90 90 83 Respiratory Rate 12 12 12 Blood Pressure 95/57 L 89/60 L 94/55 L Pulse Oximetry 100 100 100 04/05/21 19:30 04/05/21 19:45 04/05/21 20:02 Temperature Pulse Rate 97 96 102 H Respiratory Rate 16 15 13 Blood Pressure 92/54 L 98/60 L 102/66 Pulse Oximetry 100 100 100 04/05/21 20:13 04/05/21 20:30 04/05/21 22:30 Temperature 97.4 F L Pulse Rate 95 97 94 Respiratory Rate 17 16 18 Blood Pressure 96/63 L 78/47 L 91/53 L Pulse Oximetry 100 100 100 04/05/21 22:45 04/05/21 23:00 04/05/21 23:15 Temperature Pulse Rate 106 H 101 H 94 Respiratory Rate Blood Pressure 96/65 L 103/66 105/62 Pulse Oximetry 97 100 100 04/05/21 23:30 04/05/21 23:35 04/06/21 00:50 Temperature 98.3 F Pulse Rate 113 H 105 H 110 H Respiratory Rate 24 H Blood Pressure 84/46 L 97/58 L 96/40 L Pulse Oximetry 97 97 100 04/06/21 01:04 04/06/21 01:13 04/06/21 01:38 Temperature 98.2 F 98.2 F 98.6 F Pulse Rate 115 H
[2021-04-06] MEDS: FUROSEMIDE INJ 40 MG/4 ML VIAL IV PUSH (09:32)
[2021-04-06] MEDS: LACTATED RINGERS 1,000 ML 125 ML IV CONT (09:44)
[2021-04-06 11:21] LABS: Hematocrit 25.3 % (37.0-47.0); Hemoglobin 8.6 g/dL (12.0-15.0)
[2021-04-06 11:33] LABS: Anion Gap 1 mmol/L (8-16); Blood Urea Nitrogen 17 mg/dL (7-17); Calcium 7.2 mg/dL (8.4-10.2); Carbon Dioxide 24 mmol/L (22-30); Chloride 103 mmol/L (98-107); Estimated CRCL calculation 81 ml/min; Estimated Glomerular Filt Rate > 60; Glucose 142 mg/dL (65-110); Potassium 4.3 mmol/L (3.4-5.0); Sodium 128 mmol/L (137-145)
--- NOTE | 2021-04-06 11:53 | W.PM.PROC2 ---
Procedure Note - Detailed Date of Procedure 04/05/21 Pre-op Diagnosis uterine fibroids Post-op Diagnosis same Procedure Performed Abdominal myomectomy. Surgeon Pipe Jacome MD Real Estate Rental Agent Dr. Desi Marrero Anesthesia general Indications Patient with history of fibroids that have increased over the past several years causing abdominal swelling and discomfort throughout and a history of heavy periods. Uterus has measured 34 weeks. She is nulliparous and desires the option to have children in the future. Findings Enlarged uterus which consisted mostly of large intramural and subserosal fibroids she also had a large 12 cm pedunculated fibroid at the left fundus. The fallopian tubes and ovaries were normal bilaterally. Description of Procedure After informed consent was obtained patient was taken to the operating room and adequate general endotracheal anesthesia was administered. She was placed in supine position and prepped and draped in sterile fashion. Waddell catheter was placed at this time. A Pfannenstiel skin incision was made with the scalpel the subcutaneous tissue was dissected down with cautery to the fascia. The fascia was incised in the midline and extended bilaterally with Ch scissors. The fascia was from rectus muscle superiorly and inferiorly using cautery and sharp scissors. The peritoneal was identified and was grabbed with a clamp and entered sharply. The pelvic organs were visualized. The uterus was visualized and noted to have multiple fibroids the full uterus was palpated and the large pedunculated fibroid was palpated and was noted not to be attached to any surrounding tissue. The skin incision was extended to allow better visualization. The uterus could not be completely exteriorized due to the size and the pedunculated fibroid therefore attention was turned to the anterior fibroid and using dilute Pitressin Pitressin was injected over the anterior fibroid. This was the largest 1 anteriorly. An incision was made into the serosa with the cautery to the level of where the fibroid was seen. The fibroid was grasped with towel clamps the fibroid was dissected from the surrounding tissue bluntly and using cautery and Kasey clamps. The vessel that was noted to be supplying the fibroid was clamped. The fibroids were then removed. Several other larger fibroids that were palpated through this anterior incision were dissected in similar fashion. Once the fibroids that could be palpated from this incision were removed then the incision was closed in layers of [id number] of 0 Vicryl and hemostasis was noted. This did debulk the uterus enough to palpate the large pedunculated fibroid this fibroid could not be delivered through the incision but the pedicle was palpated and was clamped with Ba clamps and the pedunculated fibroid was cauterized from the pedicle. At this time the uterus was able to be exteriorized. The pedicle was suture ligated with 0 Vicryl. And the serosa underlying myometrial layer was approximated with 0 Vicryl. Multiple other fibroids were removed in similar fashion. there were 3 anterior incisions that had to the made to remove all of the fibroids that could be palpated. The cavity was near to being entered when removing the fibroids from the middle anterior incision. All of the subserosal fibroids were removed and the muscle and fascia approximated. There were a total of 20 fibroids of different sizes removed. The largest pedunculated was approximately 12 and the larger intramural fibroids were appproximately 10 and 9 cm. The pedunculated fibroid that was removed was retrieved. All layers were approximated with several layers of 0 vicryl and the serosa closed. Hemostasis was noted. Trenexamic acid was ordered during the procedure and she was given a second dose of Ancef. The pelvis was irrigated. The incisions were inspected and noted to be hemostatic. There was good tone to the uterus. There was eng
[2021-04-06] MEDS: FENTANYL 600MCG/NS30MLPCA(*CRX 600 MCG/30 ML PCA.VIAL IV CONT (12:29)
[2021-04-06] MEDS: HYDROcodone/acetaminophen (*CRX) 5-325 MG TABLET 1 TAB PO ×3 (15:06→22:40)
[2021-04-06] MEDS: IBUPROFEN 600 MG TABLET PO ×2 (15:06→22:39)
[2021-04-07] MEDS: ONDANSETRON INJ 4 MG/2 ML VIAL IV PUSH ×2 (05:26→22:21)
[2021-04-07 08:30] VITALS: BP 97/51; PULSE 108; RESP 16; TEMP 37.2; O2SAT 100
[2021-04-07] MEDS: SIMETHICONE 80 MG TAB.CHEW PO (08:46)
[2021-04-07] MEDS: BISACODYL 10 MG SUPPOSITORY RECTAL (10:50)
[2021-04-07] MEDS: IBUPROFEN 600 MG TABLET PO (10:50)
--- NOTE | 2021-04-07 11:01 | PM.GYNPNOP ---
RESOURCE RECOVERY ENGINEER - A/P Assessment and plan (1) Status post myomectomy: Code(s): Z98.890 - Other specified postprocedural states Status: Acute Assessment and Plan: POD 2 s/p myomectomy and post op anemia. No hypovolemic symptoms. Good urination. Slow return of bowel function. Bowel sounds present. Suppository ordered. Encourage ambulation. Will have do mostly liquids. Isolated elevated temp >100.4 continue to monitor, encourage IS. Postoperative Procedures: Procedures Operation Date: 04/05/21 13:30 Actual Procedure Side Surgeon p Abdominal Myomectomy Not Applicable Pipe Jacome MD Time Spent With Patient Time: Total time spent is greater than 50% in coordination of care (as documented) at patient's floor/unit and/or counseling patient: Time with patient: less than 15 minutes RESOURCE RECOVERY ENGINEER- PN:Subj Post-Op Subjective Date/time seen: 04/07/21 11:01 She has the upper abdominal gas pain. She is belching. No flatus. No nausea after eating. Tolerating regular diet. She has ambulated some, no problems. No lightheadedness or dizziness. Has been using incentive spirometer. No leg pain or chest pain or SOB. Minimal vaginal bleeding. Exam Const: General: no acute distress Eyes: General: appearance normal, both eyes and all related structures Resp: Effort & Inspection: normal respiratory effort Auscultation: clear to auscultation bilaterally Cardio: Rate: regular rate and tachycardic GI: Other: incision clean dry intact hypoactive bowel sounds uterus palpable appropriate tenderness. no rebound no guarding Skin: General skin exam: normal color Extrem: General: normal to inspection Left upper extremity: no edema Other: nontender RESOURCE RECOVERY ENGINEER - PN: Obj Data Vital Signs Vital Signs: Vital Signs - 24 hr 04/06/21 11:14 04/06/21 11:49 04/06/21 15:00 Temperature 98.6 F 98.9 F Pulse Rate 112 H 110 H Respiratory Rate 16 16 18 Blood Pressure 80/46 L 90/51 L Pulse Oximetry 96 97 97 04/06/21 20:30 04/06/21 22:30 04/07/21 08:30 Temperature 100.8 F H 99.4 F 99 F Pulse Rate 101 H 108 H Respiratory Rate 18 16 Blood Pressure 103/63 97/51 L Pulse Oximetry 100 100 Intake/Output Intake/Output: Intake & Output 04/04/21 04/05/21 04/06/21 04/07/21 23:59 23:59 23:59 23:59 Intake Total 1800 3153 600 Output Total 105 3900 1375 Balance 0889 -757 -303 Meds/Results Medications: Active Medications Generic Name Dose Route Start Last Admin Trade Name Freq PRN Reason Stop Dose Admin Hydrocodone Bitart/Acetaminophen 1 tab 04/05/21 21:23 04/06/21 22:40 Hydrocodone/Acetaminophen (*Crx) 5-325 Mg Tablet PO 1 tab Q3H PRN Administration Pain Rated 4-6 Fentanyl Citrate 600 mcg in 30 mls @ 0 mls/hr 04/05/21 20:39 04/06/21 12:29 Fentanyl 600 Mcg/Ns 30 Ml 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 [employer] Processing IV CONT 0 mls/hr PRN PRN Administration INSPECTOR AND UNLOADER Management Protocol Ibuprofen 600 mg 04/05/21 21:23 04/07/21 10:50 Ibuprofen 600 Mg Tablet PO 600 mg Q6H PRN Administration Cramping Ondansetron HCl 4 mg 04/05/21 20:11 04/07/21 05:26 Ondansetron Inj 4 Mg/2 Ml Vial IV PUSH 4 mg Q6H PRN Administration Nausea Simethicone 80 mg 04/05/21 20:11 04/07/21 08:46 Simethicone 80 Mg Tab.Chew PO 80 mg Q2H PRN Administration Gas Labs CBC & Chem 7: 04/06/21 11:14 04/06/21 11:14 Labs: Laboratory Results - last 24 hr 04/06/21 04/06/21 11:14 11:14 Hgb 8.6 L Hct 25.3 L Sodium 128 L Potassium 4.3 Chloride 103 Carbon Dioxide 24 Anion Gap 1 L BUN 17 Creatinine 1.10 H Estim Creat Clear Calc 81 Estimated GFR > 60 Glucose 142 H Calcium 7.2 L
[2021-04-07] MEDS: HYDROcodone/acetaminophen (*CRX) 5-325 MG TABLET 1 TAB PO (14:49)
[2021-04-07 16:18] LABS: Basophils Percent Auto 0.2 % (0.2-1.2); Eosinophils Percent Auto 0.1 % (0-4.4); Hematocrit 22.1 % (37.0-47.0); Hemoglobin 7.4 g/dL (12.0-15.0); Immature Granulocyte Absolute 0.08 K/mm3 (0.00-0.031); Immature Granulocyte Percent A 0.8 % (0-0.5); Lymphocytes Absolute Auto 1.09 K/mm3 (0.9-3.2); Lymphocytes Percent Auto 11.5 % (18.3-44.2); Mean Corpuscular HGB Conc 33.5 g/dl (32-36); Mean Corpuscular Hemoglobin 28.1 pg (26-34); Mean Platelet Volume 10.4 fl (7.4-10.4); Monocytes Absolute Auto 0.9 K/mm3 (0.1-0.6); Monocytes Percent Auto 9.9 % (2.6-8.5); Neutrophils Absolute Auto 7.4 K/mm3 (1.3-6.7); Neutrophils Percent Auto 77.5 % (45.5-73.1); Platelet Count Result 149 k/mm3 (150-375); Red Blood Count 2.63 M/mm3 (4.2-5.4); Red Cell Distribution Width 15.4 % (11.5-14.5); White Blood Count 9.5 K/mm3 (4.5-10.0)
[2021-04-07 16:38] LABS: Alanine Aminotransferase 15 U/L (4-35); Albumin Level 2.8 g/dL (3.5-5.1); Alkaline Phosphatase 53 U/L (38-126); Anion Gap -1 mmol/L (8-16); Aspartate Amino Transferase 30 U/L (14-36); Bilirubin,Total 0.3 mg/dL (0.2-1.3); Blood Urea Nitrogen 7 mg/dL (7-17); Calcium 8.5 mg/dL (8.4-10.2); Carbon Dioxide 32 mmol/L (22-30); Chloride 102 mmol/L (98-107); Estimated CRCL calculation 98 ml/min; Estimated Glomerular Filt Rate > 60; Glucose 127 mg/dL (65-110); Potassium 3.8 mmol/L (3.4-5.0); Sodium 133 mmol/L (137-145)
[2021-04-07] MEDS: SODIUM CHLORIDE 0.9% IV 1,000 ML 125 ML IV CONT (17:41)
[2021-04-07 18:40] VITALS: BP 102/64; PULSE 116; RESP 20; TEMP 37
--- NOTE | 2021-04-07 21:42 | PC.NURSE ---
Discussed at length the risks of refusing the NG tube to decompress the bowel and stressed the severity of possible complications. Patient and mother both verbalized understanding. Time spent at bedside.
[2021-04-08] VITALS (7 sets, daily range): BP systolic 96–113; BP diastolic 58–71; PULSE 119–122; RESP 18; TEMP 37.1–38.6; O2SAT 99–100
--- NOTE | 2021-04-08 00:25 | PC.NURSE ---
Bathroom emergency light going off. C/O abdominal discomfort and bloating. Restless and anxious. Instructed to walk in hallway. Discussed NG tube placement to decompress bowel and continued to refuse insertion. Stated, They're going to have to knock me out to put that tube in.
[2021-04-08] MEDS: diazePAM INJ (*CRX) 10 MG/2 ML SYRINGE 5 MG IV PUSH ×3 (01:38→14:20)
--- NOTE | 2021-04-08 02:05 | PC.NURSE ---
Radiology at bedside.
[2021-04-08] MEDS: SODIUM CHLORIDE 0.9% IV 1,000 ML 125 ML IV CONT ×3 (03:05→23:33)
[2021-04-08] MEDS: MORPHINE SULFATE (*CRX) 2 MG/ML INJ IV PUSH (03:05)
[2021-04-08] MEDS: PHENOL/SOD PHENO SPRAY CHERRY (*BKC) 1 SPRAY MUCOUS MEM (04:44)
[2021-04-08 05:40] LABS: Basophils Percent Auto 0.2 % (0.2-1.2); Eosinophils Percent Auto 0.1 % (0-4.4); Immature Granulocyte Absolute 0.06 K/mm3 (0.00-0.031); Immature Granulocyte Percent A 0.7 % (0-0.5); Lymphocytes Absolute Auto 1.13 K/mm3 (0.9-3.2); Lymphocytes Percent Auto 12.7 % (18.3-44.2); Mean Corpuscular HGB Conc 32.5 g/dl (32-36); Mean Corpuscular Hemoglobin 27.5 pg (26-34); Mean Corpuscular Volume 84.6 fl (80-100); Mean Platelet Volume 10.6 fl (7.4-10.4); Monocytes Absolute Auto 0.7 K/mm3 (0.1-0.6); Monocytes Percent Auto 8.3 % (2.6-8.5); Neutrophils Absolute Auto 6.9 K/mm3 (1.3-6.7); Nucleated Red Blood Cells Perc 0.2 % (0.0-0.2); Platelet Count Result 153 k/mm3 (150-375); Red Blood Count 2.47 M/mm3 (4.2-5.4); Red Cell Distribution Width 15.2 % (11.5-14.5); White Blood Count 8.9 K/mm3 (4.5-10.0)
[2021-04-08 05:59] LABS: Hematocrit 20.9 % (37.0-47.0); Hemoglobin 6.8 g/dL (12.0-15.0)
[2021-04-08 06:11] LABS: Alanine Aminotransferase 15 U/L (4-35); Albumin Level 2.8 g/dL (3.5-5.1); Alkaline Phosphatase 55 U/L (38-126); Anion Gap 3 mmol/L (8-16); Aspartate Amino Transferase 26 U/L (14-36); Bilirubin,Total 0.4 mg/dL (0.2-1.3); Blood Urea Nitrogen 6 mg/dL (7-17); Carbon Dioxide 29 mmol/L (22-30); Chloride 102 mmol/L (98-107); Estimated CRCL calculation 110 ml/min; Estimated Glomerular Filt Rate > 60; Glucose 122 mg/dL (65-110); Potassium 3.6 mmol/L (3.4-5.0); Sodium 134 mmol/L (137-145)
--- NOTE | 2021-04-08 08:55 | PC.NURSE ---
Patient taken to X-ray per wheelchair. NG tube clamped at this time and IV saline locked.
[2021-04-08 09:14] LABS: Add Urine Microscopic? YES; Appearance Urine Clear (Clear); Bacteria Urine 1+ /hpf; Bilirubin Urine Negative (Negative); Blood Urine Negative (Negative); Color Urine Yellow (Yellow); Glucose Urine UA Negative (Negative); Ketones Urine 2+ mg/dL (Negative); Leukocyte Esterase Ur Trace LEU/UL (NEGATIVE); Mucus Urine Few /lpf; Nitrate Urine Negative (Negative); Protein Urine 2+ mg/dL (Negative); Specific Grav Ur 1.026 (1.001-1.035); Squamous Epithelial Cell Urine Rare /hpf (Few); Urobilinogen Urine Negative mg/dL (<2.0)
--- NOTE | 2021-04-08 09:23 | PM.GYNPNOP ---
INFERTILITY MEDICAL ASSISTANT - A/P Assessment and plan (1) Status post myomectomy: Code(s): Z98.890 - Other specified postprocedural states Status: Acute Assessment and Plan: POD3. She has adequate pain control. Low grade temp, will rule out UTI, pneumonia. Encourage IS. (2) Postoperative anemia: Code(s): D64.9 - Anemia, unspecified Status: Acute Assessment and Plan: No signs of active bleeding, urinating well. Will give 2 additional units and will get ct abd/pelvis rule out hematoma. (3) Ileus: Code(s): K56.7 - Ileus, unspecified Status: Acute Assessment and Plan: Continue NG. Will consult die forger regarding evaluation for determination of possible PPN timing. Continue lab evaluation daily. Postoperative Procedures: Procedures Operation Date: 04/05/21 13:30 Actual Procedure Side Surgeon p Abdominal Myomectomy Not Applicable Pipe Jacome MD Time Spent With Patient Time: Total time spent is greater than 50% in coordination of care (as documented) at patient's floor/unit and/or counseling patient: Time with patient: less than 15 minutes INFERTILITY MEDICAL ASSISTANT- PN:Subj Post-Op Subjective Date/time seen: 04/08/21 09:23 She has adequate pain control. She is requesting NG out. She is not nauseous with the NG. She thought she had flatus but it looked like it was enema residual. No vaginal bleeding. She is able to ambulate to restroom. No leg pain or SOB or chest pain. Exam Const: General: alert and awake Eyes: General: appearance normal, both eyes and all related structures Resp: Effort & Inspection: normal respiratory effort Auscultation: clear to auscultation bilaterally Cardio: Rate: tachycardic Rhythm: regular rhythm GI: Inspection: normal to inspection Other: distended, no rebound, no guarding, hypoactive bowel sounds, incision clean dry and intact Skin: General skin exam: normal color Extrem: General: normal to inspection and no calf tenderness Psych: Appearance: grossly normal INFERTILITY MEDICAL ASSISTANT - PN: Obj Data Vital Signs Vital Signs: Vital Signs - 24 hr 04/07/21 18:40 04/08/21 07:37 Temperature 98.6 F 100.3 F H Pulse Rate 116 H Respiratory Rate 20 Blood Pressure 102/64 Intake/Output Intake/Output: Intake & Output 04/05/21 04/06/21 04/07/21 04/08/21 23:59 23:59 23:59 23:59 Intake Total 1800 3153 1320 1000 Output Total 105 3900 1875 1900 Balance 6294 -978 -286 -212 Meds/Results Medications: Active Medications Generic Name Dose Route Start Last Admin Trade Name Freq PRN Reason Stop Dose Admin Hydrocodone Bitart/Acetaminophen 1 tab 04/05/21 21:23 04/07/21 14:49 Hydrocodone/Acetaminophen (*Crx) 5-325 Mg Tablet PO 1 tab Q3H PRN Administration Pain Rated 4-6 Diazepam 5 mg 04/08/21 06:44 04/08/21 07:36 Diazepam Inj (*Crx) 10 Mg/2 Ml Syringe IV PUSH 5 mg TID PRN Administration Anxiety Famotidine 20 mg 04/08/21 09:00 Famotidine 20 Mg/2 Ml Vial IV PUSH Q12HR BONG Sodium Chloride 1,000 mls @ 125 mls/hr 04/07/21 16:50 04/08/21 03:05 Normal Saline Iv IV CONT 125 mls/hr .Q8H BONG Administration Acetaminophen 1,000 mg in 100 mls @ 400 mls/hr 04/07/21 16:50 04/08/21 07:37 Ofirmev 1,000 Mg Ivpb IVPB 04/08/21 16:49 400 mls/hr Q6H PRN Administration Pain Rated 4-6 Sodium Chloride 250 mls @ 30 mls/hr 04/08/21 08:23 Normal Saline Iv IV CONT 04/08/21 16:42 .Q8H20M STA Ibuprofen 600 mg 04/05/21 21:23 04/07/21 10:50 Ibuprofen 600 Mg Tablet PO 600 mg Q6H PRN Administration Cramping Morphine Sulfate 2 mg 04/07/21 16:50 04/08/21 03:05 Morphine Sulfate (*Crx) 2 Mg/Ml Inj IV PUSH 2 mg Q4H PRN Administration Pain Rated 7-10 Ondansetron HCl 4 mg 04/05/21 20:11 04/07/21 22:21 Ondansetron Inj 4 Mg/2 Ml Vial IV PUSH 4 mg Q6H PRN Administration Nausea Phenol 1 spray 04/08/21 02:52 04/08/21 04:44 Phenol/Sod Pheno [place] Valerio (*Bkc) MUCOUS MEM 1
--- NOTE | 2021-04-08 09:25 | PC.NURSE ---
Pt. back to the floor per wheelchair. Assisted patient back to bed, IV fluids restarted and NG tube unclamped and attached to wall suction. Call light within reach. Pt. tolerated well.
[2021-04-08] MEDS: FAMOTIDINE 20 MG/2 ML VIAL IV PUSH ×2 (09:33→21:27)
--- NOTE | 2021-04-08 17:07 | PC.NURSE ---
1622- NG tube clamped so patient can use the bathroom. Pt. called out stating she is having diarrhea in the bed. Pt. assisted to the bathroom, her bottom was cleaned up, bed cleaned with new linens put on the bed. Assisted patient back to bed. As soon as she got in bed she stated that she stooled again in the bed. Pt. cleaned up again. Chux and clean towels placed on the bed for easy cleanup. Pt. does not want suction reattached, she feels like it is not suctioning fluid out as much as before. Output from the NG tube has slowed since coming in this am. I left the NG tube clamped and will call Dr. Jacome for further orders. 1630- Orders received to leave NG tube clamped for 3 hours then unclamp it for an hour and record the output. Call Dr. Jacome with results at that time. She will then decide the plan of care for the night. Discussed this with patient and she verbalized understanding. Bowel sounds still hypoactive, pt. stooled again in the bed. Towel and chux removed and replaced with new towel.
[2021-04-09] VITALS (7 sets, daily range): BP systolic 105–115; BP diastolic 64–79; PULSE 106–120; RESP 18; TEMP 37.7–38.1; O2SAT 100
[2021-04-09 07:42] LABS: Basophils Percent Auto 0.4 % (0.2-1.2); Eosinophils Absolute Auto 0.1 K/mm3 (0-0.3); Eosinophils Percent Auto 1.8 % (0-4.4); Hematocrit 21.3 % (37.0-47.0); Immature Granulocyte Absolute 0.04 K/mm3 (0.00-0.031); Immature Granulocyte Percent A 0.6 % (0-0.5); Lymphocytes Absolute Auto 1.57 K/mm3 (0.9-3.2); Lymphocytes Percent Auto 23.4 % (18.3-44.2); Mean Corpuscular HGB Conc 31.9 g/dl (32-36); Mean Corpuscular Hemoglobin 27.8 pg (26-34); Mean Corpuscular Volume 86.9 fl (80-100); Monocytes Absolute Auto 0.6 K/mm3 (0.1-0.6); Monocytes Percent Auto 8.8 % (2.6-8.5); Neutrophils Absolute Auto 4.4 K/mm3 (1.3-6.7); Nucleated Red Blood Cells Absolute Auto 0.1 K/mm3 (0.0-0.012); Nucleated Red Blood Cells Perc 0.7 % (0.0-0.2); Platelet Count Result 211 k/mm3 (150-375); Red Blood Count 2.45 M/mm3 (4.2-5.4); Red Cell Distribution Width 15.4 % (11.5-14.5); White Blood Count 6.7 K/mm3 (4.5-10.0)
[2021-04-09 07:44] LABS: Hemoglobin 6.8 g/dL (12.0-15.0)
[2021-04-09 07:55] LABS: Potassium 3.4 mmol/L (3.4-5.0)
[2021-04-09 08:01] LABS: Alanine Aminotransferase 14 U/L (4-35); Albumin Level 2.7 g/dL (3.5-5.1); Alkaline Phosphatase 52 U/L (38-126); Anion Gap 3 mmol/L (8-16); Aspartate Amino Transferase 21 U/L (14-36); Bilirubin,Total 0.4 mg/dL (0.2-1.3); Blood Urea Nitrogen 4 mg/dL (7-17); Calcium 7.6 mg/dL (8.4-10.2); Carbon Dioxide 25 mmol/L (22-30); Chloride 106 mmol/L (98-107); Estimated CRCL calculation 124 ml/min; Estimated Glomerular Filt Rate > 60; Glucose 99 mg/dL (65-110); Sodium 134 mmol/L (137-145)
[2021-04-09] MEDS: SODIUM CHLORIDE 0.9% IV 1,000 ML 125 ML IV CONT (08:48)
[2021-04-09] MEDS: FAMOTIDINE 20 MG/2 ML VIAL IV PUSH (08:49)
--- NOTE | 2021-04-09 10:02 | PM.GYNPNOP ---
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 She is doing better. Ileus resolved. She continues to have flatus and BM after NG out. Will advance diet. She had fever last pm, and UA showed possible UTI. Started on Levoquin since has PCN allergy. Prior CXR atelectasis. Encourage ambulation and IS. Will switch to oral once she is tolerating full liquid diet. Postoperative Procedures: Procedures Operation Date: 04/05/21 13:30 Actual Procedure Side Surgeon p Abdominal Myomectomy Not Applicable Pipe Jacome MD Time Spent With Patient Time: Total time spent is greater than 50% in coordination of care (as documented) at patient's floor/unit and/or counseling patient: Time with patient: less than 15 minutes MARINE EQUIPMENT PRESERVATION INSPECTOR- PN:Subj Post-Op Subjective Date/time seen: 04/09/21 10:02 She states she feels better. She has been having BM, mostly loose, no nausea or vomiting, positive flatus. Ambulating well, pain controlled. No lightheadedness or dizziness. No leg pain or SOB. Exam Const: General: comfortable and no acute distress Eyes: General: appearance normal, both eyes and all related structures Resp: Effort & Inspection: normal respiratory effort Auscultation: clear to auscultation bilaterally Cardio: Rate: regular rate Rhythm: regular rhythm GI: Other: +BS, soft, ut fundus 16 appropriate tender, no guarding Extrem: General: normal to inspection and no calf tenderness Other: no edema Psych: Appearance: grossly normal MARINE EQUIPMENT PRESERVATION INSPECTOR - PN: Obj Data Vital Signs Vital Signs: Vital Signs - 24 hr 04/08/21 12:30 04/08/21 19:00 04/08/21 23:25 Temperature 100.0 F H 101.4 F H 100.6 F H Pulse Rate 121 H 119 H Respiratory Rate 18 18 Blood Pressure 110/71 96/58 L Pulse Oximetry 100 99 04/08/21 23:39 04/09/21 04:20 04/09/21 07:20 Temperature 100.6 F H 100.3 F H 100.3 F H Pulse Rate 110 H 106 H Respiratory Rate 18 18 Blood Pressure 105/67 115/79 Pulse Oximetry 100 100 04/09/21 07:32 Temperature 100.3 F H Pulse Rate Respiratory Rate Blood Pressure Pulse Oximetry Intake/Output Intake/Output: Intake & Output 04/06/21 04/07/21 04/08/21 04/09/21 23:59 23:59 23:59 23:59 Intake Total 3153 1320 3000 1300 Output Total 3900 1875 3450 1100 Balance -813 -852 -450 200 Meds/Results Medications: Active Medications Generic Name Dose Route Start Last Admin Trade Name Freq PRN Reason Stop Dose Admin Hydrocodone Bitart/Acetaminophen 1 tab 04/05/21 21:23 04/07/21 14:49 Hydrocodone/Acetaminophen (*Crx) 5-325 Mg Tablet PO 1 tab Q3H PRN Administration Pain Rated 4-6 Diazepam 5 mg 04/08/21 06:44 04/08/21 14:20 Diazepam Inj (*Crx) 10 Mg/2 Ml Syringe IV PUSH 5 mg TID PRN Administration Anxiety Famotidine 20 mg 04/08/21 09:00 04/09/21 08:49 Famotidine 20 Mg/2 Ml Vial IV PUSH 20 mg Q12HR BONG Administration Sodium Chloride 1,000 mls @ 125 mls/hr 04/07/21 16:50 04/09/21 08:48 Normal Saline Iv IV CONT 125 mls/hr .Q8H BONG Administration Levofloxacin/Dextrose 750 mg in 150 mls @ 100 mls/hr 04/08/21 21:30 04/08/21 21:44 Levaquin 750 Mg/D5w 150 Ml IVPB 100 mls/hr DAILY@2100 BONG Administration Acetaminophen 1,000 mg in 100 mls @ 400 mls/hr 04/09/21 00:00 04/09/21 07:50 Ofirmev 1,000 Mg Ivpb IVPB 04/10/21 00:00 Infused Q6H PRN Infusion Fever Ibuprofen 600 mg 04/05/21 21:23 04/07/21 10:50 Ibuprofen 600 Mg Tablet PO 600 mg Q6H PRN Administration Cramping Morphine Sulfate 2 mg 04/07/21 16:50 04/08/21 03:05 Morphine Sulfate (*Crx) 2 Mg/Ml Inj IV PUSH 2 mg Q4H PRN Administration Pain Rated 7-10 Phenol 1 spray 04/08/21 02:52 04/08/21 04:44 Phenol/Sod Pheno [place] Valerio (*Bkc) MUCOUS MEM 1 spray PRN PRN Administration Sore Throat Simethicone 80 mg
[2021-04-09] MEDS: IBUPROFEN 600 MG TABLET PO (15:04)
[2021-04-09] MEDS: levoFLOXacin 500 MG TABLET PO (17:27)
[2021-04-09] MEDS: FAMOTIDINE 20 MG TABLET PO (21:06)
[2021-04-09] MEDS: DOCUSATE SODIUM 100 MG CAPSULE PO (21:06)
[2021-04-10 00:16] VITALS: TEMP 38
[2021-04-10] MEDS: ACETAMINOPHEN ELIXIR 325 MG/10.15 ML UDC 650 MG PO (00:16)
[2021-04-10 04:00] VITALS: BP 108/71; PULSE 103; RESP 18; TEMP 37.6; O2SAT 100
[2021-04-10 08:08] VITALS: BP 114/72; PULSE 114; RESP 18; TEMP 37.1; O2SAT 100
[2021-04-10] MEDS: FAMOTIDINE 20 MG TABLET PO (09:07)
[2021-04-10] MEDS: DOCUSATE SODIUM 100 MG CAPSULE PO (09:07)
--- NOTE | 2021-04-10 09:41 | PM.GYNPNOP ---
CUSTOMER SERVICE REP - A/P Assessment and plan (1) Status post myomectomy: Code(s): Z98.890 - Other specified postprocedural states Status: Acute Assessment and Plan: Post op day 5 s/p myomectomy and s/p ileus. Resolved. Will discharge home. Discharge precautions discussed. (2) UTI (urinary tract infection): Code(s): N39.0 - Urinary tract infection, site not specified Status: Acute Postoperative Procedures: Procedures Operation Date: 04/05/21 13:30 Actual Procedure Side Surgeon p Abdominal Myomectomy Not Applicable Pipe Jacome MD Time Spent With Patient Time: Total time spent is greater than 50% in coordination of care (as documented) at patient's floor/unit and/or counseling patient: Time with patient: less than 15 minutes CUSTOMER SERVICE REP- PN:Cleo Post-Op Subjective Date/time seen: 04/10/21 09:41 She states she feels good. Adequate pain control. Tolerating reg diet. Minimal abdominal pain. No nausea. Has loose stools. Ambulating without problems. Exam Const: General: comfortable and no acute distress Eyes: General: appearance normal, both eyes and all related structures Resp: Effort & Inspection: normal respiratory effort GI: Other: soft, incision intact, mild tender at incision, nondistended Extrem: General: normal to inspection Other: nontender CUSTOMER SERVICE REP - PN: Obj Data Vital Signs Vital Signs: Vital Signs - 24 hr 04/09/21 15:00 04/09/21 15:04 04/09/21 19:00 Temperature 100.6 F H 100.6 F H 99.9 F H Pulse Rate 120 H 112 H Respiratory Rate 18 18 Blood Pressure 105/69 110/64 Pulse Oximetry 100 100 04/09/21 23:43 04/10/21 00:16 04/10/21 04:00 Temperature 100.4 F H 100.4 F H 99.7 F H Pulse Rate 107 H 103 H Respiratory Rate 18 18 Blood Pressure 108/65 108/71 Pulse Oximetry 100 100 04/10/21 08:08 Temperature 98.7 F Pulse Rate 114 H Respiratory Rate 18 Blood Pressure 114/72 Pulse Oximetry 100 Intake/Output Intake/Output: Intake & Output 04/07/21 04/08/21 04/09/21 04/10/21 23:59 23:59 23:59 23:59 Intake Total 1320 3000 2500 200 Output Total 1875 3450 3800 2600 Balance -441 -207 -0533 -7080 Meds/Results Medications: Active Medications Generic Name Dose Route Start Last Admin Trade Name Freq PRN Reason Stop Dose Admin Acetaminophen 650 mg 04/10/21 00:05 04/10/21 00:16 Acetaminophen Elixir 325 Mg/10.15 Ml Udc PO 650 mg Q4H PRN Administration Mild Pain (1-3) or Fever Hydrocodone Bitart/Acetaminophen 1 tab 04/05/21 21:23 04/07/21 14:49 Hydrocodone/Acetaminophen (*Crx) 5-325 Mg Tablet PO 1 tab Q3H PRN Administration Pain Rated 4-6 Docusate Sodium 100 mg 04/09/21 21:00 04/10/21 09:07 Docusate Sodium 100 Mg Capsule PO 100 mg Q12HR BONG Administration Famotidine 20 mg 04/09/21 21:00 04/10/21 09:07 Famotidine 20 Mg Tablet PO 20 mg Q12HR BONG Administration Ibuprofen 600 mg 04/10/21 00:05 Ibuprofen Suspension 200 Mg/10 Ml Udc PO Q6H PRN Cramping Phenol 1 spray 04/08/21 02:52 04/08/21 04:44 Phenol/Sod Pheno [place] Valerio (*Bkc) MUCOUS MEM 1 spray PRN PRN Administration Sore Throat Polysaccharide Iron Complex 150 mg 04/10/21 08:00 04/10/21 08:07 Polysaccharide Iron Complex 150 Mg Capsule PO Not Given DAILY@0800 [facility] Simethicone 80 mg 04/05/21 20:11 04/07/21 08:46 Simethicone 80 Mg Tab.Chew PO 80 mg Q2H PRN Administration Gas Radiology Results: ITS Impressions Abdomen X-Ray 04/08/21 08:15 IMPRESSION: 1: NG tube tip in the stomach. 2: Dilated small bowel, consistent with ileus or obstruction. Chest X-Ray 04/08/21 09:07 Impression: 1: Right lower lobe atelectasis. Abdomen/Pelvis CT 04/08/21 09:33 IMPRESSION: 1. Bilateral lower lobe airspace disease which may represent atelectasis and/or developing pneumonia. 2: Multiple dilated fluid-filled small bowel loops with air-fluid levels, consistent with ileus. 3: La
--- NOTE | 2021-04-10 09:42 | PM.DS ---
DS: Admitting Diagnosis Discharge Date 04/10/2021 Admitting Diagnosis Symptomatic fibrioid uterus. DS: Discharge Diagnosis Discharge Diagnosis (1) Status post myomectomy: Code(s): Z98.890 - Other specified postprocedural states Status: Acute (2) Fibroid uterus: Code(s): D25.9 - Leiomyoma of uterus, unspecified Status: Acute (3) Postoperative anemia: Code(s): D64.9 - Anemia, unspecified Status: Acute (4) Ileus: Code(s): K56.7 - Ileus, unspecified Status: Acute (5) UTI (urinary tract infection): Code(s): N39.0 - Urinary tract infection, site not specified Status: Acute DS: Summary Hospital Course Reason for hospitalization: Planned abdominal myomectomy. Hospital Course: Patient was admitted on . She had the abdominal myomectomy. Her EBL at surgery was estimated at least 1700c. Post operatively the evening of surgery she had hypovolemic symptoms and a H/H of . She received 2 units of PRBCs. This corrected her hypovolemic symptoms. POD1 she had bowel sounds and was started on clear liquids and diet advanced as tolerated. On POD2 she had nausea, no flatus and increasing upper abdominal pain and episode of emesis. She had a KUB which confirmed ileus. She was started NPO. She was recommended for NG which took a while for her to agree to it after several attempts. NG confirmed in correct place. on POD 3 she had increased temp. she had a CT abd pelvis. Her hemoglobin was slightly decreased no hypovolemic symptoms. CT confirmed ileus, no hematoma. She did have low grade temp and cxr showed atelectasis, urine analysis showed possible UTI which she was started on levoquin due to PCN allergy. She was encouraged to use incentive spirometer. She did spike a temp of 101.4. She was started on Levoquin. Blood cultures performed. Cultures no growth prior to discharge. Urine culture confirmed UTI. On POD 3 she had flatus and bowel movements and diarrhea. NG removed. On POD4 She tolerated liquids and full. No abdominal pain. Ambulating well. Her pain was controlled with Tylenol. On POD 5 2/ tolerted regular diet. Discharged to home with precautions. Time Spent with Patient Time attestation: Total time spent providing and/or coordinating discharge services: Exam Const: General: comfortable, no acute distress, alert and awake Eyes: General: appearance normal, both eyes and all related structures Resp: Effort & Inspection: normal respiratory effort Auscultation: clear to auscultation bilaterally Cardio: Rate: regular rate Rhythm: regular rhythm GI: Other: +BS throughout, nontender, incision healing well intact dry no drainage. : External Female Exam: normal external appearance Skin: General skin exam: normal color Extrem: General: normal to inspection, no calf tenderness and no edema DS: Data Data Completed and Pending Completed studies during hospitalization: KUB CT abd pelvic Chest xray Pending studies at discharge: Pending at discharge 04/05/21 17:16 Surgical [PTH] Routine Labs on day of discharge: Preliminary micro results at discharge 04/08/21 21:23 Blood Culture - Preliminary Blood Discharge Plan Discharge Attending physician on discharge: Pipe Jacome Consulting providers: Raymond Mckay Discharging Clinician: Pipe Jacome Anticipated Discharge Date/Time: 04/10/21 11:25 Patient Disposition: Home, Self-Care Activity: may shower, no straining, no driving, may drive after 2 weeks and pelvic rest Diet: regular, bland and high fiber Discharge Instructions: No lifting. No straining. May go upstairs once first week. May take Miralax if no bowel movement for 24 hours. Take Colace 100mg once or twice a day. Take iron supplement Slo Fe twice a day. Eat iron rich foods- greens, spinach, beets. Drink plenty of fluids. High fiber diet. Call if fever greater than 101, drainage from incision, vaginal bleeding w
== END 2021-04-10 12:10 | disposition home or self-care (01) | DRG 742 ==
LOC: ANHOB2 20:20
PROVIDERS: Registered Nurse; Admitting Provider Obstetrics & Gynecology; PCP Family Medicine Sports Medicine; Visit Provider Obstetrics & Gynecology
PROC: 0UT94ZZ Resection of Uterus, Percutaneous Endoscopic Approach (ICD-10-PCS; principal; 2021-04-05 13:30)
DX: D25.9 Leiomyoma of uterus, unspecified (principal); K56.7 Ileus, unspecified; N39.0 Urinary tract infection, site not specified; J98.11 Atelectasis; K21.9 Gastro-esophageal reflux disease without esophagitis; Z87.891 Personal history of nicotine dependence; D64.9 Anemia, unspecified
CPT/HCPCS: 36415; 36430; 71046; 74018; 74176; 80048; 80053; 81001; 85014; 85018; 85025; 85027; 86850; 86900; 86901; 86920; 87040; 87077; 87086; 87088; 87186; 88305; A9270; J0131; J0330; J0690; J1100; J1885; J1940; J1956; J2210; J2250; J2270; J2405; J2704; J3010; J3360; J7030; J7120; P9016; P9047

== ENCOUNTER 2021-09-11 09:35 | Emergency (ER) | payer OTHER, SELFPAY ==
[2021-09-11 09:44] VITALS: BP 128/92; PULSE 74; RESP 14; TEMP 36.9; O2SAT 100
[2021-09-11 09:46] VITALS: BP 128/92; PULSE 74; RESP 14; TEMP 36.9; O2SAT 100
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
== END 2021-09-11 10:22 | disposition home or self-care (01) ==
PROVIDERS: Emergency Provider Registered Nurse; PCP Family Medicine Sports Medicine
DX: S16.1XXA Strain of muscle, fascia and tendon at neck level, initial encounter (principal); X58.XXXA Exposure to other specified factors, initial encounter; K21.9 Gastro-esophageal reflux disease without esophagitis; E66.01 Morbid (severe) obesity due to excess calories; D57.3 Sickle-cell trait
CPT/HCPCS: 99213; G0463

== ENCOUNTER 2021-11-27 17:15 | Emergency (ER) | payer OTHER, SELFPAY ==
--- NOTE | ~2021-11-27 | XR_ITS ---
EXAMINATION: XR knee RT 3V DATE: 11/27/2021 17:34 INDICATION: One month of right knee pain and swelling TECHNIQUE: of the affected knee were obtained COMPARISON: None. FINDINGS: Borderline patella daren. Alignment is otherwise normal. No fracture. Joint spaces appear relatively preserved on nonweightbearing imaging. Sclerotic appearing lesion on the AP and oblique radiographs w ith no change in position and absence of correlate on the lateral projection suggesting this is relat ed to mild hypertrophic change at the anterior tibial tuberosity. No evident cortical erosions, perio steal reaction or other aggressive features. No joint effusion/layering lipohemarthrosis. Soft tissue s are unremarkable. IMPRESSION: 1. No right knee joint effusion or acute osseous abnormality. 2. Likely benign region of sclerosis at the anterior proximal tibia likely related to hypertrophic [place] at the patellar insertion at the anterior tibial tuberosity. Correlate with clinical history and any prior outside imaging. Could consider CT for more definitive determination as clinically indicat ed. Reviewed, dictated and finalized at location A. IMPRESSION: 1. No right knee joint effusion or acute osseous abnormality. 2. Likely benign region of sclerosis at the anterior proximal tibia likely rela [place] to hypertrophic change at the patellar insertion at the anterior tibial tub erosity. Correlate with clinical history and any prior outside imaging. Could c onsider CT for more definitive determination as clinically indicated.
--- NOTE | 2021-11-27 17:18 | ED.LOWEXIN ---
HPI - Extremity Injury (Lower) General Chief Complaint: Extremity Injury, Lower Stated Complaint: rt knee pain Time Seen by Provider: 11/27/21 17:19 Source: patient, RN notes reviewed and old records reviewed Mode of arrival: ambulatory Limitations: no limitations History of Present Illness HPI Narrative: 31-year-old female presents to the [facility] with right knee pain for over 1 month. Patient states its intermittent. Last Saturday it became worse with swelling. States a month ago she was working out when she developed pain in her knee. Related Data Home Medications Medication Instructions Recorded Confirmed elderberry fruit 460 mg-elderberry 1 cap PO DAILY 07/01/20 09/11/21 flower 115 mg capsule multivitamin (Daily Multi-Vitamin 1 tablet PO DAILY 07/01/20 09/11/21 tablet) ferrous sulfate 325 mg (65 mg 325 mg PO DAILY 03/30/21 09/11/21 iron) tablet (Iron (ferrous sulfate)) vitamin B12 2,500 mcg-folic acid 1 tablet PO DAILY 03/30/21 09/11/21 400 mcg disintegrating tablet Allergies Allergy/AdvReac Type Severity Reaction Status Date / Time Penicillins Allergy Unknown HIVES Verified 09/11/21 09:44 Review of Systems Review of Systems: All systems reviewed & are unremarkable except as noted in HPI and below Constitutional: Constitutional: Reports no additional constitutional complaints, Denies chills and Denies fever(s) Eyes: Eyes: Reports no additional eye complaints ENT: Reports system reviewed and no additional complaints, except as documented Cardiovascular: Cardiovascular: Reports no additional cardiovascular complaints Respiratory: Respiratory: Reports no additional respiratory complaints Gastrointestinal: Gastrointestinal: Reports no additional gastrointestinal complaints Musculoskeletal: Musculoskeletal: Reports as per HPI and Reports arthralgias (right ) Integumentary/Breasts: Skin/Breast: Reports system reviewed and no additional complaints, except as docu Neurologic: Reports system reviewed and no additional complaints, except as documented Psychiatric: Psychiatric: Reports no additional psychiatric complaints Allergic/Immunologic: Allergic/Immunologic: Reports no additional allergic/immunologic complaints PMFSH Past Medical History Medical History Acid reflux Anemia History of uterine fibroid Jumper's knee Morbid obesity Sickle cell trait Surgical History Surgical History Hx of myomectomy Family History Family History Other Breast cancer Other Diabetes mellitus Grandparent Hypertension Mother Asthma Father Asthma Social History Social History Smoking status: Never smoker Additional smoking assessment comments: QUIT VAPING FEB 2021 Alcohol intake: current Drinks per week: 5 Alcohol use details: socially Substance use: current Substance use type: marijuana Other substance usage details: GUMMIES Gender identity (if verbalized by 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 There is no relevant family history pertinent to the patient complaint. Exam Const: General: healthy appearing, no acute distress and alert Nutritional Appearance: well nourished and obese Orientation/consciousness: patient oriented x3 Limitations: no limitations HENMT: Head: normal to inspection Ears: external ears normal Eyes: General: appearance normal, both eyes and all related structures Pupils: Equal, round and reactive pupils present Neck: Neck: normal visual inspection, no lymphadenopathy and no meningeal signs Chest: Chest palpation & inspection: normal inspection of the chest Resp: Effo
[2021-11-27 17:34] VITALS: BP 117/90; PULSE 97; RESP 20; TEMP 36.6; O2SAT 100
== END 2021-11-27 18:54 | disposition home or self-care (01) ==
PROVIDERS: Emergency Provider Nurse Practitioner
DX: M25.561 Pain in right knee (principal); E66.01 Morbid (severe) obesity due to excess calories; Z68.42 Body mass index [BMI] 45.0-49.9, adult; Z87.891 Personal history of nicotine dependence
CPT/HCPCS: 73562; 99213; G0463

== ENCOUNTER 2021-12-27 17:38 | Emergency (ER) | payer OTHER, SELFPAY ==
[2021-12-27 17:55] VITALS: BP 114/74; PULSE 103; RESP 16; TEMP 37.6; O2SAT 99
--- NOTE | 2021-12-27 17:58 | ED.URI ---
HPI - URI/Sore Throat General Chief Complaint: Upper Respiratory Infection Stated Complaint: SORE THROAT/CHEST COUGH Time Seen by Provider: 12/27/21 17:58 History of Present Illness HPI Narrative: 31 y/o female presents for c/o sore throat, onset 2 days ago. Patient reports associated non-productive cough, CP only with cough, headache, fatigue that started today. 5/10 pain. Denies otalgia, palpitations, wheezing, abdominal pain, NVD, fevers, or SOB. Has taken Tylenol 500 mg x 1 with successful relief of JOSEPH. 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 Related Data Home Medications Medication Instructions Recorded Confirmed elderberry fruit 460 mg-elderberry 1 cap PO DAILY 07/01/20 12/27/21 flower 115 mg capsule multivitamin (Daily Multi-Vitamin 1 tablet PO DAILY 07/01/20 12/27/21 tablet) ferrous sulfate 325 mg (65 mg 325 mg PO DAILY 03/30/21 12/27/21 iron) tablet (Iron (ferrous sulfate)) vitamin B12 2,500 mcg-folic acid 1 tablet PO DAILY 03/30/21 12/27/21 400 mcg disintegrating tablet loratadine-pseudoephedrine ER 10 1 tablet PO DAILY 12/13/21 12/27/21 mg-240 mg tablet,extended [id number] (Claritin-D 24 Hour) Allergies Allergy/AdvReac Type Severity Reaction Status Date / Time Penicillins Allergy Unknown HIVES Verified 12/27/21 17:50 Review of Systems Review of Systems: ROS per HPI PMFSH Past Medical History Medical History Acid reflux Anemia Chondromalacia patellae of right knee History of uterine fibroid Jumper's knee Morbid obesity Sickle cell trait Surgical History Surgical History Hx of myomectomy [address] 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 TM pearly clement with normal light reflex bilaterally; no tragal tenderness. Oropharynx erythematous without lesions. Tonsils 1+ and without exudate. No drooling, no hoarseness, no trismus, uvula midline. No tripod positioning, hot potato voice, or soft palate swelling. NECK: Supple. No lymphadenopathy CHEST: Clear to auscultation, breath sounds equal. No respiratory distress, speaks in full sentences. HEART: Regular rate and rhythm. No murmur heard. SKIN: Warm, dry, no rash. NEURO: Alert and oriented x3. Course Course Emergency Course: Patient is aware of diagnosis, understands and agrees to treatment plan. Anticipatory guidance given. Patient agrees to follow-up as directed and is aware of reasons to seek care at the emergency department. Portions of this record may have been created with voice recognition software Level of Care: Express Care Visit Vital Signs Vital signs: Vital Signs Temperature 99.6 F 12/27/21 17:55 Pulse Rate 103 H 12/27/21 17:55 Respiratory Rate 16 12/27/21 17:55 Blood Pressure 114/74 12/27/21 17:55 Pulse Oximetry 99 12/27/21 17:55 Temperature 99.6 F 12/27/21 17:55 Pulse Rate 103 H 12/27/21 17:55 Respiratory Rate 16 12/27/21 17:55 Blood Pressure 114/74 12/27/21 17:55 Pulse Oximetry 99 12/27/21
== END 2021-12-27 18:33 | disposition home or self-care (01) ==
PROVIDERS: Emergency Provider Nurse Practitioner Family; PCP Family Medicine
DX: J10.1 Influenza due to other identified influenza virus with other respiratory manifestations (principal); K21.9 Gastro-esophageal reflux disease without esophagitis; E66.01 Morbid (severe) obesity due to excess calories; Z68.41 Body mass index [BMI] 40.0-44.9, adult; D57.3 Sickle-cell trait; D64.9 Anemia, unspecified
CPT/HCPCS: 87081; 87880; 99213; G0463

== ENCOUNTER 2022-03-28 08:37 | Emergency (ER) | payer OTHER, SELFPAY ==
[2022-03-28 09:04] VITALS: BP 110/81; PULSE 86; RESP 16; TEMP 36.9; O2SAT 100
--- NOTE | 2022-03-28 09:04 | ED.URI ---
HPI - URI/Sore Throat General Chief Complaint: Upper Respiratory Infection Stated Complaint: SWOLLEN/SCRATCHY THROAT Time Seen by Provider: 03/28/22 08:52 Source: patient Mode of arrival: ambulatory Limitations: no limitations History of Present Illness HPI Narrative: Patient presents today complaining of a 3 day history of sore throat and rhinorrhea. Denies any additional symptoms to include fever, cough, congestion, body aches. She currently rates her pain 8/10 and has been using Chloraseptic and mouthwash which have provided some relief. 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 Patient saw her PCP yesterday for same complaint. States, ?she looked in there but did not say much. ? Related Data Home Medications Medication Instructions Recorded Confirmed elderberry fruit 460 mg-elderberry 1 cap PO DAILY 07/01/20 03/28/22 flower 115 mg capsule multivitamin (Daily Multi-Vitamin 1 tablet PO DAILY 07/01/20 03/28/22 tablet) ferrous sulfate 325 mg (65 mg 325 mg PO DAILY 03/30/21 03/28/22 iron) tablet (Iron (ferrous sulfate)) vitamin B12 2,500 mcg-folic acid 1 tablet PO DAILY 03/30/21 03/28/22 400 mcg disintegrating tablet loratadine-pseudoephedrine ER 10 1 tablet PO DAILY 12/13/21 03/28/22 mg-240 mg tablet,extended [id number] (Claritin-D 24 Hour) Allergies Allergy/AdvReac Type Severity Reaction Status Date / Time Penicillins Allergy Unknown HIVES Verified 03/28/22 08:55 Review of Systems Review of Systems: CONSTITUTIONAL: Denies body aches, fever, chills, or sweats. EYES: Denies visual changes, redness, or discharge. ENT: Denies congestion, or otalgia.+ sore throat, rhinorrhea CARDIOVASCULAR: Denies chest pain, palpitations, or edema. RESPIRATORY: Denies cough or dyspnea. GASTROINTESTINAL: Denies abdominal pain, nausea, vomiting, or diarrhea. GENITOURINARY: Denies dysuria or hematuria. SKIN: Denies rash, itching, or wounds. MUSCULOSKELETAL: Denies back pain, joint pain, or myalgia. NEUROLOGIC: Denies headache, numbness, tingling, or weakness. PSYCH: Denies depression or anxiety. [facility] Past Medical History Medical History Acid reflux Anemia Chondromalacia patellae of right knee History of uterine fibroid Jumper's knee Morbid obesity Sickle cell trait Surgical History Surgical History Hx of myomectomy [address] Jacome Family History Family History Other Breast cancer Other Diabetes mellitus Grandparent Hypertension Mother Asthma Father Asthma Social History Social History Smoking status: Never smoker Additional smoking assessment comments: QUIT VAPING FEB 2021 Alcohol intake: current Drinks per week: 5 Alcohol use details: socially Substance use: current Substance use type: marijuana Other substance usage details: GUMMIES Lack of Transportation: No Lack of Food: Never True Current Housing: I Have Housing Concerned About Future Housing: No Difficulty Paying Gas/Electric Bills: No Difficulty Paying for Meds: No Currently Unemployed: No Education: Master's Degree or Higher Difficulty w/ Childcare or Family Care: No Living arrangements: alone Occupation/Education: occupation 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 Please see nursing chart for further information. There is no relevant family history pertinent to the presenting complaint Exam Narrative: GENERAL: Well-appearing, well-nourished, and in no acute d
== END 2022-03-28 09:10 | disposition home or self-care (01) ==
PROVIDERS: Emergency Provider Nurse Practitioner; PCP Emergency Medicine
DX: J02.9 Acute pharyngitis, unspecified (principal); Z87.891 Personal history of nicotine dependence; F12.90 Cannabis use, unspecified, uncomplicated; K21.9 Gastro-esophageal reflux disease without esophagitis; E66.01 Morbid (severe) obesity due to excess calories; Z68.42 Body mass index [BMI] 45.0-49.9, adult; D57.3 Sickle-cell trait; D64.9 Anemia, unspecified
CPT/HCPCS: 87081; 87880; 99213; G0463

== ENCOUNTER → 2023-01-11 13:41 | Outpatient (CLI) | payer OTHER, SELFPAY ==
--- NOTE | ~2023-01-11 | XR_ITS ---
EXAMINATION: XR knee RT 3V DATE: 01/11/2023 13:53 INDICATION: Right TECHNIQUE: Three views of the right knee were obtained. COMPARISON: 11/07/2021 FINDINGS: Alignment is normal. No fracture or osteochondral lesion. Joint spaces are normal with no e rosions. No joint effusion/synovitis. Soft tissues are unremarkable. IMPRESSION: 1. No acute osseous abnormality. Reviewed, dictated and finalized at location B. MAN
== END ==
PROVIDERS: PCP Emergency Medicine; Visit Provider Emergency Medicine
DX: M25.561 Pain in right knee (principal)
CPT/HCPCS: 73562

== ENCOUNTER 2023-05-30 09:39 | Outpatient (RCR) | payer OTHER, SELFPAY ==
[2023-05-30 09:30] VITALS: BMI 46.6
[2023-05-30 09:42] VITALS: BMI 46.6
== END 2023-08-20 14:11 | disposition home or self-care (01) ==
LOC: ANHDMC 09:39
PROVIDERS: PCP Emergency Medicine; Visit Provider Emergency Medicine
DX: R73.03 Prediabetes (principal); Z71.3 Dietary counseling and surveillance
CPT/HCPCS: 97802

== ENCOUNTER 2023-07-08 10:06 | Emergency (ER) | payer OTHER, SELFPAY ==
--- NOTE | 2023-07-08 10:11 | ED.URI ---
HPI - URI/Sore Throat General Chief Complaint: Upper Respiratory Infection Stated Complaint: Sore Throat/Cough/Congestion Time Seen by Provider: 07/08/23 10:26 Source: patient, RN notes reviewed and old records reviewed Mode of arrival: ambulatory Limitations: no limitations History of Present Illness HPI Narrative: 33-year-old female presents to the [facility] with complaints sore throat that has resolved, cough and sinus congestion that started yesterday. Reports nasal drainage and face feeling achy. No treatment prior to arrival Onset (ago): day(s) (1) Treatments prior to arrival: none Related Data Home Medications Medication Instructions Recorded Confirmed multivitamin (Daily Multi-Vitamin 1 tablet PO DAILY 07/01/20 07/08/23 tablet) fluticasone propionate 50 1 spray intranasal DAILY 07/08/23 07/08/23 mcg/actuation nasal spray,suspension Allergies Allergy/AdvReac Type Severity Reaction Status Date / Time Penicillins Allergy Unknown HIVES Verified 07/08/23 10:25 Review of Systems Review of Systems: All systems reviewed & are unremarkable except as noted in HPI and below Constitutional: Constitutional: Reports no additional constitutional complaints Eyes: Eyes: Reports no additional eye complaints ENT: Reports as per HPI, Reports nasal congestion, Reports nasal discharge and Reports sore throat Cardiovascular: Cardiovascular: Reports no additional cardiovascular complaints, Denies chest pain and Denies dyspnea Respiratory: Respiratory: Reports no additional respiratory complaints, Denies chest congestion, Denies cough and Denies dyspnea Gastrointestinal: Gastrointestinal: Reports no additional gastrointestinal complaints, Denies abdominal pain, Denies nausea and Denies vomiting Musculoskeletal: Musculoskeletal: Reports no additional musculoskeletal complaints Integumentary/Breasts: Skin/Breast: Reports system reviewed and no additional complaints, except as docu Neurologic: Reports system reviewed and no additional complaints, except as documented Psychiatric: Psychiatric: Reports no additional psychiatric complaints Allergic/Immunologic: Allergic/Immunologic: Reports no additional allergic/immunologic complaints [facility] Past Medical History Medical History Acid reflux Anemia Chondromalacia patellae of right knee History of uterine fibroid Jumper's knee Morbid obesity Sickle cell trait Surgical History Surgical History Hx of myomectomy [address] Jacome Family History Family History Other Breast cancer Other Diabetes mellitus Grandparent Hypertension Mother Asthma Father Asthma Social History Social History Smoking status: Never smoker Tobacco type: e-cigarettes/vaping Alcohol intake: current Drinks per week: 5 Alcohol use details: socially Substance use: current Substance use type: marijuana Other substance usage details: GUMMIES Lack of Transportation: No Lack of Food: Never True Current Housing: I Have Housing Concerned About Future Housing: No Difficulty Paying Gas/Electric Bills: No Difficulty Paying for Meds: No Currently Unemployed: No Education: Master's Degree or Higher Difficulty w/ Childcare or Family Care: No Living arrangements: alone Occupation/Education: occupation 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 There is no relevant family history pertinent to the patient complaint. Exam Const: General: cooperative, healthy appearing, comfortable, no acute
[2023-07-08 10:15] VITALS: BP 118/91; PULSE 81; RESP 15; TEMP 36.5; O2SAT 99
[2023-07-08 10:25] VITALS: BP 118/91; PULSE 81; RESP 15; TEMP 36.5; O2SAT 99
== END 2023-07-08 10:38 | disposition home or self-care (01) ==
PROVIDERS: Emergency Provider Nurse Practitioner; PCP Emergency Medicine
DX: J06.9 Acute upper respiratory infection, unspecified (principal); J02.9 Acute pharyngitis, unspecified; J35.8 Other chronic diseases of tonsils and adenoids; E66.01 Morbid (severe) obesity due to excess calories; Z68.42 Body mass index [BMI] 45.0-49.9, adult
CPT/HCPCS: 99211; G0463

== ENCOUNTER 2024-01-24 18:19 | Emergency (ER) | payer OTHER, SELFPAY ==
--- NOTE | ~2024-01-24 | XR_ITS ---
EXAMINATION: XR chest 2V DATE: 01/24/2024 18:40 INDICATION: Cough. Chest congestion. TECHNIQUE: Frontal and lateral views of the chest were obtained. COMPARISON: Chest 2 views 04/08/2021, CT abdomen and pelvis 04/08/2021 FINDINGS: There is no pneumonia, pleural effusion, or pneumothorax. The heart size is normal. IMPRESSION: 1. No acute cardiopulmonary disease. Reviewed, dictated and finalized at location A. [employer]GER
--- NOTE | 2024-01-24 18:21 | ED_ITS ---
HPI - URI/Sore Throat General Chief Complaint: Upper Respiratory Infection Stated Complaint: cough,congestion Time Seen by Provider: 01/24/24 18:20 Source: patient Mode of arrival: ambulatory Limitations: no limitations History of Present Illness HPI Narrative: Anastasia is a 33-year-old female patient presenting to the clinic today with complaints of cough, nasal congestion, and sore throat. She reports that the s ore throat has resolved and she is just having cough and congestion this time. 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 MD elicited complaint: sore throat and nasal congestion Related Data Home Medications Medication Instructions Recorded Confirmed multivitamin (Daily Multi-Vitamin 1 tablet PO DAILY 07/01/20 01/24/24 tablet) fluticasone propionate 50 1 spray intranasal DAILY 07/08/23 01/24/24 mcg/actuation nasal spray,suspension Allergies Allergy/AdvReac Type Severity Reaction Status Date / Time Penicillins Allergy Unknown HIVES Verified 01/24/24 18:25 Review of Systems Review of Systems: Pertinent positives per HPI. Patient denies any fever, chills, rash, headache, visual changes, dizziness, shortness of breath, chest pain, palpitations, nause a, vomiting, diarrhea, constipation, abdominal pain, or any urinary issues. [facility] Past Medical History Medical History Acid reflux Anemia Chondromalacia patellae of right knee History of uterine fibroid Jumper's knee Morbid obesity Sickle cell trait Surgical History Surgical History Hx of myomectomy [address] Jacome Family History Family History Other Breast cancer Other Diabetes mellitus Grandparent Hypertension Mother Asthma Father Asthma Social History Social History Smoking status: Never smoker Tobacco type: e-cigarettes/vaping Alcohol intake: current Drinks per week: 5 Alcohol use details: socially Substance use: current Substance use type: marijuana Other substance usage details: GUMMIES Lack of Transportation: No Lack of Food: Never True Current Housing: I Have Housing Concerned About Future Housing: No Difficulty Paying Gas/Electric Bills: No Difficulty Paying for Meds: No Currently Unemployed: No Education: Master's Degree or Higher Difficulty w/ Childcare or Family Care: No Living arrangements: alone Occupation/Education: occupation 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 There is no relevant family history pertinent to the patient complaint. Exam Narrative: General: Well-developed, well nourished, in no apparent distress Head: Normocephalic, atraumatic Eyes: Pupils equally round and reactive to light bilaterally, EOM intact, sclera and conjunctive clear, no discharge, lids normal Ears: TMs intact and clear, ear canals clear, no drainage, grossly hearing normal. Nose: Nares patent, clear nasal discharge, moderate inflammation, no sinus tenderness. Mouth: Oral pharynx without lesions or masses, good dentition, MMM. Neck: Supple, trachea midline, no enlargement of anterior or posterior cervical nodes, no thyroid masses or goiter palpable. Cardio: Regular rate and rhythm, s1 and s2 normal, no murmur appreciated. Resp: Clear to auscultation bilaterally, no rhonchi, rales, wheezing or rubs Course Course Emergency Course: Portions of this record may have been created with voice recognition software. Level of Care: Express Care Visit Vital Signs Vital signs: Vital Signs Temperature 36.8 C 01/24/24 18:27 Pulse Rate 92 01/24/24 18:27 Respiratory Rate 16 01/24/24 18:27 Blood Pressure 114/72 01/24/24 18:27 Pulse Oximetry 99 01/24/24 18:27 Temperature 36.8 C 01/24/24 18:27 Pulse Rate 92 01/24/24 18:27 Respiratory Rate 16 01/24/24 18:27 Blood Pressure 114/72 01/24/24 18:27 Pulse Oximetry 99 01/24/24 18:27 Vital signs reviewed MDM - URI/Sore Throat MDM Narrative Medical decision making narrative: At the time of visit patient is resting comfortably on the exam table. Patient appears to be nontoxic. Diagnostics: Chest x-ray was performed and was negative for any acute cardiopulmonary process. Plan: I suspect patient has URI with cough and congestion. Supportive measures were discussed with the patient and they voiced understanding discharge instructions and agrees to treatment plan. Return precautions reviewed Differential Diagnosis Differential diagnosis: Likely upper respiratory infection, otitis media, sinusitis, viral infection, bronchitis, influenza, pharyngitis and other (COVID) Imaging Data Radiologist's impression: ITS Impressions Chest X-Ray 01/24/24 18:43 IMPRESSION: 1. No acute cardiopulmonary disease. Discharge Plan Discharge Clinical Impression: Upper respiratory infection with cough and congestion Patient Disposition: Home, Self-Care Condition: Stable Instructions: Antibiotic Form, Cold Symptoms (ED) Additional Instructions: Chest x-rays negative for any sign of pneumonia in the clinic today. May take DayQuil/NyQuil for cold/flu symptoms. Increase fluids and stay well hydrated Tylenol/motrin for pain/fever Flonase and OTC antihistamines as directed Vicks vapor rub to open sinuses Sinus rinses for congestion Cepacol spray, cough drops, throat lozenges, warm tea with honey/lemon, gargle salt water to soothe throat BRAT diet for diarrhea Clear liquids x 24 hours then advance as tolerated for nausea/vomiting Go to the ED if you develop a worsening in your condition- high fever not contr olled by Tylenol or Motrin, dehydration, weakness, lethargy, shortness of breath, or chest pain. Follow up with your PCP in 3-5 days if symptoms persist. Prescriptions: No Action fluticasone propionate [Flonase] 50 mcg/actuation Herman,Suspension 1 spray INTRANASAL DAILY Rx Instructions: administer into each nostril multivitamin [Daily Multi-Vitamin] Tablet 1 tablet PO DAILY Follow-up/Referrals: Carlos Sparks MD [Primary Care Provider] - Time of Disposition: 18:46 Quality NIHSS Nursing Documentation ED NIHSS nursing documentation: reviewed/agree
[2024-01-24 18:27] VITALS: BP 114/72; PULSE 92; RESP 16; TEMP 36.8; O2SAT 99
== END 2024-01-24 18:49 | disposition home or self-care (01) ==
PROVIDERS: Emergency Provider Nurse Practitioner Family; PCP Emergency Medicine
DX: J06.9 Acute upper respiratory infection, unspecified (principal); F12.90 Cannabis use, unspecified, uncomplicated; K21.9 Gastro-esophageal reflux disease without esophagitis; E66.9 Obesity, unspecified; Z68.42 Body mass index [BMI] 45.0-49.9, adult; D57.3 Sickle-cell trait
CPT/HCPCS: 71046; 99213; G0463

== ENCOUNTER 2024-05-03 09:18 | Emergency (ER) | payer OTHER, SELFPAY ==
--- NOTE | 2024-05-03 09:19 | ED.URI ---
HPI - URI/Sore Throat General Chief Complaint: Upper Respiratory Infection Stated Complaint: Congestion Time Seen by Provider: 05/03/24 09:19 Source: patient Mode of arrival: ambulatory Limitations: no limitations History of Present Illness HPI Narrative: Anastasia is a 33-year-old female patient presenting to the clinic today with complaints of cough, sinus pressure, and nasal congestion x2 weeks. She reports no known fevers, chills, body aches. Has been doing sinus rinses, Zyrtec, and Claritin D without relief. MD elicited complaint: nasal congestion and sinus pain Related Data Home Medications ?Medication ?Instructions ?Recorded ?Confirmed ?Last Taken ?Type multivitamin (Daily Multi-Vitamin 1 tablet PO DAILY 07/01/20 01/24/24 Unknown History tablet) fluticasone propionate 50 1 spray intranasal DAILY 07/08/23 01/24/24 Unknown History mcg/actuation nasal spray,suspension cetirizine 10 mg tablet mg 05/03/24 Unknown History Allergies Allergy/AdvReac Type Severity Reaction Status Date / Time Penicillins Allergy Unknown HIVES Verified 05/03/24 09:24 Review of Systems Review of Systems: Pertinent positives per HPI. Patient denies any fever, chills, rash, headache, visual changes, dizziness, shortness of breath, chest pain, palpitations, nausea, vomiting, diarrhea, constipation, abdominal pain, or any urinary issues. [facility] Past Medical History Medical History Chondromalacia patellae of right knee Sickle cell trait Anemia Morbid obesity History of uterine fibroid Jumper's knee Acid reflux Surgical History Surgical History Hx of myomectomy [address] Jacome Family History Family History Other Breast cancer Other Diabetes mellitus Grandparent Hypertension Mother Asthma Father Asthma Social History Social History Smoking status: Never smoker Tobacco type: e-cigarettes/vaping Alcohol intake: current Drinks per week: 5 Alcohol use details: socially Substance use: current Substance use type: marijuana Other substance usage details: GUMMIES Lack of Transportation: No Lack of Food: Never True Current Housing: I Have Housing Concerned About Future Housing: No Difficulty Paying Gas/Electric Bills: No Difficulty Paying for Meds: No Currently Unemployed: No Education: Master's Degree or Higher Difficulty w/ Childcare or Family Care: No Living arrangements: alone Occupation/Education: occupation 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 There is no relevant family history pertinent to the patient complaint. Exam Narrative: General: Well-developed, well nourished, in no apparent distress Head: Normocephalic, atraumatic Eyes: Pupils equally round and reactive to light bilaterally, EOM intact, sclera and conjunctive clear, no discharge, lids normal Ears: TMs intact and clear, ear canals clear, no drainage, grossly hearing normal. Nose: Nares patent, yellow nasal discharge, moderate inflammation, maxillary and frontal sinus tenderness. Mouth: Oral pharynx without lesions or masses, good dentition, MMM. Postnasal drip Neck: Supple, trachea midline, no enlargement of anterior or posterior cervical nodes, no thyroid masses or goiter palpable. Cardio: Regular rate and rhythm, s1 and s2 normal, no murmur appreciated. Resp: Clear to auscultation bilaterally, no rhonchi, rales, wheezing or rubs Course Course Emergency Course: Portions of this record may have been created with voice recognition software. Level of Care: Express Care Visit Vital Signs Vital signs: Vital Signs Temperature 36.6 C 05/03/24 09:29 Pulse Rate 84 05/03/24 09:29 Respiratory Rate 18 05/03/24 09:29 Blood Pressure 110/80 05/03/24 09:29 Pulse Oximetry 100 05/03/24 09:29 Temperature 36.6 C 05/03/24 09:29 Pulse Rate 84 05/03/24 09:29 Respiratory Rate 18 05/03/24 09:29 Blood Pressure 110/80 05/03/24 09:29 Pulse Oximetry 100 05/03/24 09:29 Vital signs reviewed MDM - URI/Sore Throat MDM Narrative Medical decision making narrative: At the time of visit patient is resting comfortably on the exam table. Patient appears to be nontoxic. Plan: I suspect patient has acute bacterial rhinosinusitis. Will send in prescription for doxycycline and prednisone. Supportive measures were discussed with the patient and they voiced understanding discharge instructions and agrees to treatment plan. Return precautions reviewed Differential Diagnosis Differential diagnosis: Likely upper respiratory infection, otitis media, sinusitis, viral infection, bronchitis, influenza, pharyngitis and other (COVID) Discharge Plan Discharge Clinical Impression: Acute bacterial rhinosinusitis Patient Disposition: Home, Self-Care Condition: Stable Instructions: Antibiotic Form, Sinusitis (ED) Additional Instructions: Take prescription medications only as prescribed-doxycycline and prednisone Increase fluids and stay well hydrated Tylenol/motrin for pain/fever Flonase and OTC antihistamines as directed Vicks vapor rub to open sinuses Sinus rinses for congestion Cepacol spray, cough drops, throat lozenges, warm tea with honey/lemon, gargle salt water to soothe throat BRAT diet for diarrhea Clear liquids x 24 hours then advance as tolerated for nausea/vomiting Go to the ED if you develop a worsening in your condition- high fever not controlled by Tylenol or Motrin, dehydration, weakness, lethargy, shortness of breath, or chest pain. Follow up with your PCP in 3-5 days if symptoms persist. Patient Language: Irish Prescriptions: New prednisone 20 mg tablet 40 mg PO DAILY 5 Days Qty: 10 0RF doxycycline monohydrate 100 mg capsule 100 mg PO BID 10 Days Qty: 20 0RF No Action fluticasone propionate [Flonase] 50 mcg/actuation [place],Suspension 1 spray INTRANASAL DAILY Rx Instructions: administer into each nostril cetirizine 10 mg tablet multivitamin [Daily Multi-Vitamin] Tablet 1 tablet PO DAILY Follow-up/Referrals: PHYSICIAN,[facility] S[facility]TER [Primary Care Provider] - Time of Disposition: 09:32 Quality NIHSS Nursing Documentation ED NIHSS nursing documentation: reviewed/agree
[2024-05-03 09:29] VITALS: BP 110/80; PULSE 84; RESP 18; TEMP 36.6; O2SAT 100
== END 2024-05-03 09:45 | disposition home or self-care (01) ==
PROVIDERS: Emergency Provider Nurse Practitioner Family
DX: J01.90 Acute sinusitis, unspecified (principal); F12.90 Cannabis use, unspecified, uncomplicated; D57.3 Sickle-cell trait; E66.01 Morbid (severe) obesity due to excess calories; Z68.42 Body mass index [BMI] 45.0-49.9, adult; K21.9 Gastro-esophageal reflux disease without esophagitis
CPT/HCPCS: 99213; G0463

== ENCOUNTER 2024-06-03 12:49 | Outpatient (CLI) | payer OTHER, SELFPAY ==
--- NOTE | ~2024-06-03 | US_ITS ---
Pelvic ultrasound. Clinical History: Hypertrophy of uterus Technique: Realtime transabdominal and transvaginal scanning of the pelvis was performed. Color flow Doppler and Doppler spectral analysis were performed. Findings: The uterus is anteverted, and measures 14.4 x 8.1 x 12.9 cm. The endometrial stripe has a thickness of 5 mm. Posterior fibroid measures 4.0 x 3.2 x 5.6 cm. Probable densely calcified fibroid measures 2.7 cm. Anterior fibroid measures 3.0 x 4.5 x 2.9 cm. Additional exophytic fibroid anteriorl y measures 6.0 cm in maximum diameter.. Neither ovary seen. No other adnexal mass seen.. There is no evidence of free fluid in the cul de sac. Small fat-containing umbilical hernia. Impression: Enlarged, multifibroid uterus, as detailed above. Small fat-containing umbilical hernia. Reviewed, dictated and finalized at [facility]. Impression: Enlarged, multifibroid uterus, as detailed above. Small fat-containing umbilical hernia.
--- NOTE | ~2024-06-03 | US_ITS ---
Thyroid ultrasound. Clinical History: Nontoxic goiter Findings: Real-time sonography of the thyroid gland was performed. The right lobe measures 4.5 x 2.2 x 2.1 cm. The left lobe measures 4.6 x 2.0 x 1.8 cm. The isthmus is 3 mm in AP diameter. No thyroid nodule seen. Impression: No significant abnormality seen.. Reviewed, dictated and finalized at location . Impression: No significant abnormality seen..
== END 2024-06-03 12:50 | disposition home or self-care (01) ==
LOC: GOSHIMG 12:50
PROVIDERS: PCP Obstetrics & Gynecology; Visit Provider Obstetrics & Gynecology
DX: N85.2 Hypertrophy of uterus (principal); D25.9 Leiomyoma of uterus, unspecified; K42.9 Umbilical hernia without obstruction or gangrene; E04.9 Nontoxic goiter, unspecified
CPT/HCPCS: 76536; 76830; 76856

== ENCOUNTER 2024-08-05 11:29 | Emergency (ER) | payer OTHER, SELFPAY ==
[2024-08-05 11:41] VITALS: BP 131/87; PULSE 85; RESP 16; TEMP 36.8; O2SAT 99
--- NOTE | 2024-08-05 12:33 | ED_ITS ---
HPI - Abdominal Pain General Chief Complaint: Abdominal Pain Stated Complaint: ABD PAIN Time Seen by Provider: 08/05/24 12:25 Source: patient and RN notes reviewed Mode of arrival: ambulatory Limitations: no limitations History of Present Illness HPI narrative: 34-year-old female presents Express Care complaining of lower abdominal pain for 4 days. Patient reports she feels pressure in her lower abdomen and increased frequency. Patient denies any chance of reports she has not had any intercourse the last 3 years. Patient says she has history of enlarged uterus and multiple uterine fibroids. She had a myomectomy done in the past remove uterine fibroids. Patient denies any vaginal discharge or vaginal bleeding, vaginal irritation, dysuria, back pain, nausea, vomiting, diarrhea, fevers, body aches, or chills. Patient denies any concerns for STIs. Patient has been taking Tylenol with no relief. Patient was told that she had more uterine fibroids return from ultrasound was performed back in June 2024. Related Data Home Medications ?Medication ?Instructions ?Recorded ?Confirmed ?Last Taken ?Type multivitamin (Daily Multi-Vitamin 1 tablet PO DAILY 07/01/20 01/24/24 Unknown History tablet) fluticasone propionate 50 1 spray intranasal DAILY 07/08/23 01/24/24 Unknown History mcg/actuation nasal spray,suspension cetirizine 10 mg tablet mg 05/03/24 Unknown History vitamin B12 500 mcg-folic acid 400 1 tablet PO DAILY 05/19/24 Unknown History mcg tablet cholecalciferol (vitamin D3) 50 50 mcg PO DAILY 06/18/24 Unknown History mcg (2,000 unit) capsule elderberry fruit 350 mg capsule mg PO 06/18/24 Unknown History Allergies Allergy/AdvReac Type Severity Reaction Status Date / Time Penicillins Allergy Unknown HIVES Verified 08/05/24 11:50 Review of Systems Review of Systems: CONSTITUTIONAL: Denies fever, chills, or sweats. EYES: Denies visual changes, redness, or discharge. ENT: Denies rhinorrhea, congestion, sore throat, or otalgia. CARDIOVASCULAR: Denies chest pain, palpitations, or edema. RESPIRATORY: Denies cough or dyspnea. GASTROINTESTINAL: Denies abdominal pain, nausea, vomiting, or diarrhea. GENITOURINARY: Denies dysuria, vaginal bleeding, vaginal discharge or hematuria. Positive for pelvic pain and increased frequency. SKIN: Denies rash or itching. MUSCULOSKELETAL: Denies back pain, joint pain, or myalgia. NEUROLOGIC: Denies headache, numbness, or weakness. PSYCHIATRIC: Denies anxiety or depression. All other systems reviewed are negative, except as documented in HPI. [facility] Past Medical History Medical History Chondromalacia patellae of right knee Sickle cell trait Anemia Morbid obesity History of uterine fibroid Jumper's knee Acid reflux Surgical History Surgical History Hx of myomectomy [address] Jacome Family History Family History Other Breast cancer Other Diabetes mellitus Grandparent Hypertension Mother Asthma Father Asthma Social History Social History Smoking status: Never smoker Tobacco type: e-cigarettes/vaping Alcohol intake: current Drinks per week: 5 Alcohol use details: socially Substance use: current Substance use type: marijuana Other substance usage details: GUMMIES Lack of Transportation: No Lack of Food: Never True Current Housing: I Have Housing Concerned About Future Housing: No Difficulty Paying Gas/Electric Bills: No Difficulty Paying for Meds: No Currently Unemployed: No Education: Master's Degree or Higher Difficulty w/ Childcare or Family Care: No Living arrangements: alone Occupation/Education: occupation 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 There is no relevant family history pertinent to the patient complaint. Exam Narrative: GENERAL: This is a well-nourished, well-developed adult, in no apparent distress. They are non ill-appearing, nontoxic appearing. Patient is obese. Physical exam limited to large body habitus. HEAD: normocephalic, atraumatic. EYES: Sclera clear/white. Conjunctiva normal. Vision is grossly intact. Extraocular movements intact EARS: External ears normal. Hearing grossly intact. NOSE: External nose normal THROAT: Mucous membranes moist, NECK: Neck supple, non-tender without lymphadenopathy, masses or thyromegaly. CARDIOVASCULAR: Regular rate and rhythm without murmurs, gallops, or rubs. RESPIRATORY: Clear to auscultation. Breath sounds equal bilaterally. No wheezes, rales, or rhonchi. GASTROINTESTINAL: Abdomen is large, tenderness to palpation to the suprapubic region, nondistended. Suprapubic region is firm to palpate. Bowel sounds are active. No hepato-splenomegaly, or palpable masses. No guarding. GENITOURINARY: Declined pelvic exam SKIN: warm, Dry, intact with no suspicious lesions or rash, good texture and turgor. NEURO: awake, alert, and oriented to person, place and time. There were no obvious focal neurologic abnormalities. EXTREMITIES: No joint tenderness, effusion, or edema noted. BACK: Nontender without deformity. No CVA tenderness. Course Course Emergency Course: Portions of this record may have been created with voice recognition software Level of Care: Express Care Visit Vital Signs Vital signs: Vital Signs Temperature 98.3 F 08/05/24 11:41 Pulse Rate 85 08/05/24 11:41 Respiratory Rate 16 08/05/24 11:41 Blood Pressure 131/87 08/05/24 11:41 Pulse Oximetry 99 08/05/24 11:41 Temperature 98.3 F 08/05/24 11:41 Pulse Rate 85 08/05/24 11:41 Respiratory Rate 16 08/05/24 11:41 Blood Pressure 131/87 08/05/24 11:41 Pulse Oximetry 99 08/05/24 11:41 Reviewed MDM - Abdominal Pain MDM Narrative Medical decision making narrative: Patient's lower abdomen is firm where her uterus to be located, which could be consistent with her enlarged uterus history. Urine dipstick negative for any evidence of urinary tract infection. Urine is negative. A urine culture is pending. Offered pelvic exam patient declined, stating she will see her see her OBGYN. Given patient's symptoms, new onset of pain, and exam findings it is recommended she seek a higher level care go to the ER immediately. Patient has stage she is unsure she wants to go to the ER and will contact her OBGYN to schedule a follow-up and further evaluation and management. Patient is alert and oriented x4. Patient has the mental capacity to make an informed medical decisions for herself. Patient is signing out against medical advice. Strict ER precautions discussed patient. Differential Diagnosis Differential diagnosis: Likely other (Uterine fibroids, ovarian torsion, uterine mass) Lab Data Labs: Lab Results 08/05/24 Range/Units 12:34 POC Urine Color Yellow POC Urine Clarity Clear POC Urine pH 7.0 POC Ur Specif [place] 1.020 POC Urine Protein Negative (Negative) POC Ur Glucose (UA) Negative (Negative) POC Urine Ketones Negative (Negative) POC Urine Blood Negative (Negative) POC Urine Nitrite Negative (Negative) POC Urine Bilirubin Negative (Negative) POC Urine Urobilinogen 0.2 POC U Leukocyte Esteras Negative (Negative) POC Urine HCG, Qual Negative (Negative) Critical Care Time Critical Care Time Critical Care Time: No Discharge Plan Discharge Clinical Impression: Lower abdominal pain Patient Disposition: Left Against Medical Advice Condition: Stable Patient Language: Setswana Prescriptions: No Action fluticasone propionate [Flonase] 50 mcg/actuation [place],Suspension 1 spray INTRANASAL DAILY Rx Instructions: administer into each nostril cetirizine 10 mg tablet multivitamin [Daily Multi-Vitamin] Tablet 1 tablet PO DAILY vitamin T04-tbbty acid 500-400 mcg tablet 1 tablet PO DAILY Rx Instructions: administer with a meal cholecalciferol (vitamin D3) 50 mcg (2,000 unit) capsule 50 mcg PO DAILY elderberry fruit 350 mg capsule PO Follow-up/Referrals: Pipe Jacome MD [Primary Care Provider] - Time of Disposition: 12:32
[2024-08-05 12:37] LABS: EDUAAPPEAR Clear; EDUABILI Negative (Negative); EDUABLOOD Negative (Negative); EDUACOLOR1 Yellow; EDUAGLUCOSE Negative (Negative); EDUAKETONE Negative (Negative); EDUALEUKO Negative (Negative); EDUANITRATE Negative (Negative); EDUAPROTEIN Negative (Negative); EDUAUROBILI 0.2
[2024-08-05 12:38] LABS: BEDSIDEPREGUCG Negative (Negative)
== END 2024-08-05 12:40 | disposition left against medical advice (07) ==
PROVIDERS: PCP Obstetrics & Gynecology
DX: R10.30 Lower abdominal pain, unspecified (principal); F17.290 Nicotine dependence, other tobacco product, uncomplicated; F12.90 Cannabis use, unspecified, uncomplicated; D57.3 Sickle-cell trait; E66.01 Morbid (severe) obesity due to excess calories; Z68.42 Body mass index [BMI] 45.0-49.9, adult; K21.9 Gastro-esophageal reflux disease without esophagitis
CPT/HCPCS: 81003; 81025; 87086; 99213; G0463